=== PATIENT | female | born 2000 | race Caucasian/White ===

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

== ENCOUNTER 2020-01-25 23:57 | Emergency (ER) | payer MEDICAID ==
[~2020-01-25] VITALS: Ht 162.6 cm; Wt 58.5 kg
--- NOTE | 2020-01-26 00:18 | ED GU-Female ---
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 PT REPORTS SHE IS 12 WEEKS . 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 She tried taking some Ibuprofen for the pain at home but it did not help. She states she is about 12 weeks . She denies any vaginal bleeding or discharge. She had an ultrasound with Dr. Em so knows that she has IUP and had FHT found with doppler in last office visit last week on Jan.17. She denies fever or chills. She did not have sex tonight and denies any trauma or injury. She has had recurrent vomiting during the . She denies pain or burning with urination. This is her first . Her next office visit with Dr. Em is not until February 14. Allergies and Home Medications Allergies Coded Allergies: No Known Drug Allergies (Unverified , 12/11/19) Home Medications Cephalexin 500 Mg Tablet, 500 MG PO QID Prescribed by: WILBER LAZO on 01/26/20 0047 Patient Home Medication List Home Medication List Reviewed: Yes Review of Systems Review of Systems Constitutional: No chills, No fever EENTM: no symptoms reported Respiratory: no symptoms reported Cardiovascular: no symptoms reported Gastrointestinal: see HPI Genitourinary: see HPI : Yes Musculoskeletal: no symptoms reported Skin: no symptoms reported Psychiatric/Neurological: No Symptoms Reported Past Apraqyp-Ddwafw-Eiuxko Hx Past Med/Social Hx: Reviewed Nursing Past Med/Soc Hx Patient Social History Alcohol Use: Denies Use Recreational Drug Use: No Smoking Status: Never a Smoker 2nd Hand Smoke Exposure: No Recent Foreign Travel: No Contact w/Someone Who Travel: No Recent Infectious Disease Expo: No Recent Hopitalizations: No Physical Abuse: No Sexual Abuse: No Mistreated: No Fear: No Past Medical History Surgeries: No Respiratory: No Cardiac: No Neurological: No Genitourinary: No Gastrointestinal: No Musculoskeletal: No Endocrine: No HEENT: No Cancer: No Psychosocial: No Integumentary: No Blood Disorders: No Physical Exam Vital Signs Vital Signs - First Documented 01/26/20 00:07 Temp 35.7 Pulse 80 Resp 17 B/P (MAP) 107/70 O2 Delivery Room Air Capillary Refill : Height, Weight, BMI Height: '" Weight: lbs. oz. 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 II-XII nml as tested, no motor/sensory deficits, alert, normal mood/affect, oriented x 3 Skin: normal color, warm/dry Progress/Results/Core Measures Suspected Sepsis SIRS Temperature: Pulse: Respiratory Rate: Blood Pressure / Mean: Results/Orders Lab Results Laboratory Tests Test 01/26/20 00:11 Range/Units Urine Color YELLOW Urine Clarity SL CLOUDY Urine pH 6.0 5-9 Urine Specific [place] >1.030 1.016-1.022 Urine Protein NEGATIVE NEGATIVE Urine Glucose (UA) NEGATIVE NEGATIVE Urine Ketones NEGATIVE NEGATIVE Urine Nitrite NEGATIVE NEGATIVE Urine Bilirubin NEGATIVE NEGATIVE Urine Urobilinogen 0.2 < = 1.0 MG/DL Urine Leukocyte Esterase 1+ H NEGATIVE Urine RBC (Auto) NEGATIVE NEGATIVE Urine RBC NONE /HPF Urine WBC 5-10 H /HPF Urine Squamous Epithelial Cells 5-10 /HPF Urine Crystals NONE /LPF Urine Bacteria MODERATE H /HPF Urine Casts NONE /LPF Urine Mucus MODERATE H /LPF Urine Culture Indicated YES My Orders Orders - WILBER LAZO MD Ua Culture If Indicated (01/26/20 00:04) Urine Culture (01/26/20 00:11) Acetaminophen Tablet (Tylenol Tablet) (01/26/20 00:35) Cephalexin Capsule (Keflex Capsule) (01/26/20 00:35) Vital Signs/I&O 01/26/20 00:07 Temp 35.7 Pulse 80 Resp 17 B/P (MAP) 107/70 O2 Delivery Room Air Capillary Refill : Progress Note #1: Progress Note check urine sample and try listening for FHT. Advised pt against using NSAIDS during and to use Tylenol instead. Progress Note #2: Progress Note FHT found to be 165-170s. UA shows LE, Bacteria and WBC. Will treat with Keflex for UTI, Tylenol for pain. Call Dr. Em in AM for follow up. Departure Impression Primary Impression: UTI (urinary tract infection) in in first trimester Additional Impressions: Dehydration during Pelvic pain affecting in first trimester, antepartum Disposition: HOME, SELF-CARE Condition: Stable Departure-Patient Inst. Decision time for Depature: 00:40 Referrals: THOMAS EM MD (PCP/Family) Primary Care Physician Patient Instructions: Urinary Tract Infections in , Nausea and Vomiting of (DC), Dehydration, Adult (DC) Add. Discharge Instructions: Continue to drink plenty of water and stay well hydrated. Call Dr. Em for follow up about the urine infection and pelvic pain during your All discharge instructions reviewed with patient and/or family. Voiced understanding. Scripts Cephalexin (Cephalexin) 500 Mg Tablet 500 MG PO QID for uti for 7 Days, #28 TAB 0 Refills Prov: WILBER LAZO MD 01/26/20 WILBER LAZO MD Jan 26, 2020 00:18
[2020-01-26 00:26] LABS: BACTERIA,URINE MODERATE /HPF; BILIRUBIN,URINE NEGATIVE (NEGATIVE); CLARITY,URINE SL CLOUDY; COLOR,URINE YELLOW; GLUCOSE, URINE (UA) NEGATIVE (NEGATIVE); KETONES,URINE NEGATIVE (NEGATIVE); LEUKOCYTE ESTERASE ,URINE 1+ (NEGATIVE); NITRITE,URINE NEGATIVE (NEGATIVE); PROTEIN,URINE NEGATIVE (NEGATIVE)
[2020-01-26] MEDS ORDERED: CEPHALEXIN 250 MG (KEFLEX) CAP PO STA (00:35)
[2020-01-26] MEDS ORDERED: ACETAMINOPHEN 500 MG TAB (TYLENOL) PO STA (00:35)
[2020-01-26] MEDS ORDERED: CEPH500T PO (00:47)
== END 2020-01-26 00:50 | disposition home or self-care (01) ==
LOC: EDUNIT# 23:57 → ER FS 01-26 00:01
DX: O23.41 Unspecified infection of urinary tract in pregnancy, first trimester (principal); O99.281 Endocrine, nutritional and metabolic diseases complicating pregnancy, first trimester; E86.0 Dehydration; O26.891 Other specified pregnancy related conditions, first trimester; R10.2 Pelvic and perineal pain; Z3A.12 12 weeks gestation of pregnancy
CPT/HCPCS: 81000; 87088; 99283

== ENCOUNTER 2022-02-12 12:10 | Emergency (ER) | payer MEDICAID ==
[~2022-02-12] VITALS: Ht 162 cm; Wt 58.0 kg
[~2022-02-12 12:10] MED LIST: CEPH500T PO
[2022-02-12 12:13] VITALS: BP 103/60
--- NOTE | 2022-02-12 13:11 | ED GU-Female ---
General Chief Complaint: - Reproductive Stated Complaint: URINARY DISCOMFORT Nursing Triage Note: Pt states that she has had burning with urination for the past week. Source: family Exam Limitations: no limitations History of Present Illness Date Seen by Provider: Feb 12, 2022 Time Seen by Provider: 12:45 Initial Comments Patient is a 21-year-old female who presents with urinary frequency urgency and dysuria for the past several days. She denies fever chills, nausea vomiting or sweats and flank pain. No bladder or pelvic pain. No vaginal bleeding or change in discharge. No medications or therapies prior to ED arrival. Timing/Duration: just prior to arrival, week Severity/Quality: other Location: other Radiation: other Activities at Onset: other Sexual [place] History: other Modifying Factors: Improves With Other Associated Symptoms: other Allergies and Home Medications Allergies Coded Allergies: No Known Drug Allergies (Unverified , 12/11/19) Patient Home Medication List Home Medication List Reviewed: No Cephalexin (Cephalexin) 500 Mg Tablet, 500 MG PO QID Prescribed by: WILBER LAZO on 01/26/20 0047 Review of Systems Review of Systems Constitutional: see HPI Genitourinary: see HPI, dysuria, frequency, pain, urgency Skin: see HPI Past Mrmbekm-Uxycfn-Vhoiys Hx Patient Social History Tobacco Use?: No Use of E-Cig and/or Vaping dev: No Substance use?: No Alcohol Use?: No Pt feels they are or have been: No Past Medical History Surgeries: No Respiratory: No Cardiac: No Neurological: No Last Menstrual Period: Jan 28, 2022 Genitourinary: No Gastrointestinal: No Musculoskeletal: No Endocrine: No HEENT: No Cancer: No Psychosocial: No Integumentary: No Blood Disorders: No Physical Exam Vital Signs Vital Signs - First Documented 02/12/22 12:13 Temp 37.1 Pulse 90 Resp 16 B/P (MAP) 103/60 (74) Pulse Ox 99 O2 Delivery Room Air Capillary Refill : Less Than 3 Seconds Height, Weight, BMI Height: '" Weight: lbs. oz. kg; 22.00 BMI Method: General Appearance: WD/WN, no apparent distress Gastrointestinal: non tender, soft Neurologic/Psychiatric: no motor/sensory deficits, alert, normal mood/affect, oriented x 3 Focused Exam Sepsis Stage: Ruled Out Progress/Results/Core Measures Suspected Sepsis SIRS Temperature: Pulse: 90 Respiratory Rate: 16 Blood Pressure 103 /60 Mean: 74 Results/Orders Lab Results Laboratory Tests Test 02/12/22 12:13 Range/Units Urine Color YELLOW Urine Clarity CLOUDY Urine pH 5.5 5-9 Urine Specific [place] >=1.030 1.016-1.022 Urine Protein NEGATIVE NEGATIVE Urine Glucose (UA) NEGATIVE NEGATIVE Urine Ketones NEGATIVE NEGATIVE Urine Nitrite NEGATIVE NEGATIVE Urine Bilirubin NEGATIVE NEGATIVE Urine Urobilinogen 0.2 < = 1.0 MG/DL Urine Leukocyte Esterase 2+ H NEGATIVE Urine RBC (Auto) NEGATIVE NEGATIVE Urine RBC NONE /HPF Urine WBC 10-25 H /HPF Urine Squamous Epithelial Cells 2-5 /HPF Urine Renal Epithelial Cells RARE /HPF Urine Crystals NONE /LPF Urine Bacteria FEW H /HPF Urine Casts NONE /LPF Urine Mucus SMALL H /LPF Urine Culture Indicated YES My Orders Orders - RAMÓN INGRAM DO Ua Culture If Indicated (02/12/22 12:25) Urine Bedside (02/12/22 12:25) Urine Bedside (02/12/22 12:37) Urine Culture (02/12/22 12:13) Vital Signs/I&O 02/12/22 12:13 Temp 37.1 Pulse 90 Resp 16 B/P (MAP) 103/60 (74) Pulse Ox 99 O2 Delivery Room Air Capillary Refill : Less Than 3 Seconds Blood Pressure Mean: 74 Departure Communication (Admissions) Dysuria with positive UA. Antibiotics prescribed. Recommendations therapeutic care and PCP follow-up. Return precautions reviewed. Patient verbalizes understanding and agreement with discharge instructions prior to discharge Impression Primary Impression: Urinary tract infection Disposition: 01 HOME, SELF-CARE Condition: Stable Departure-Patient Inst. Decision time for Depature: 13:31 Referrals: THOMAS SYED MD (PCP) Primary Care Physician Patient Instructions: Urinary Tract Infection, Adult (DC) Add. Discharge Instructions: You were evaluated in the emergency department for presence of urinary tract infection. A urine sample was performed and is positive. Please fill newly pr escribed antibiotics and take as directed. Increase fluids and follow-up with your PCP in 5 days for reevaluation if symptoms persist. All discharge instructions reviewed with patient and/or family. Voiced understanding. Scripts Sulfamethoxazole/Trimethoprim (Bactrim Ds Tablet) 800 Mg-160 Mg Tablet 1 EACH PO BID, #14 TAB Prov: RAMÓN INGRAM DO 02/12/22 RAMÓN INGRAM DO Feb 12, 2022 13:11
[2022-02-12 13:16] LABS: BILIRUBIN,URINE NEGATIVE (NEGATIVE); CLARITY,URINE CLOUDY; COLOR,URINE YELLOW; GLUCOSE, URINE (UA) NEGATIVE (NEGATIVE); KETONES,URINE NEGATIVE (NEGATIVE); LEUKOCYTE ESTERASE ,URINE 2+ (NEGATIVE); NITRITE,URINE NEGATIVE (NEGATIVE); PH,URINE 5.5 (5-9); PROTEIN,URINE NEGATIVE (NEGATIVE)
[2022-02-12 13:17] LABS: BACTERIA,URINE FEW /HPF; RENAL EPITHELIAL CELLS,URINE RARE /HPF
[2022-02-12] MEDS ORDERED: SULF-221 PO (13:32)
== END 2022-02-12 13:40 | disposition home or self-care (01) ==
LOC: EDUNIT# 12:10 → ER FS 12:11
DX: N39.0 Urinary tract infection, site not specified (principal)
CPT/HCPCS: 81000; 84703; 87088; 99282

== ENCOUNTER 2022-03-26 14:44 | Emergency (ER) | payer MEDICAID ==
[~2022-03-26 14:44] MED LIST changes: +SULF-221 PO
--- NOTE | 2022-03-26 15:12 | ED Cough/URI ---
General Chief Complaint: Cough/Cold/Flu Symptoms Stated Complaint: SOB; COUGH Nursing Triage Note: REPORTS COUGH AND CHEST SORENESS WHEN SHE COUGHS SINCE YESTERDAY. Source: patient Exam Limitations: no limitations History of Present Illness Date Seen by Provider: Mar 26, 2022 Time Seen by Provider: 14:58 Initial Comments 21-year-old female who is 5 to 6 weeks presents for cough, chest pain. She states sharp stabbing pains in her chest when she coughs. No pain outside of this. No abdominal pain or concerns. Symptoms started yesterday. No fevers or chills. Cough is nonproductive to this point. No sick contacts. Allergies and Home Medications Allergies Coded Allergies: No Known Drug Allergies (Unverified , 12/11/19) Patient Home Medication List Home Medication List Reviewed: Yes Cephalexin (Cephalexin) 500 Mg Tablet, 500 MG PO QID Prescribed by: WILBER LAZO on 01/26/20 0047 Sulfamethoxazole/Trimethoprim (Bactrim Ds Tablet) 800 Mg-160 Mg Tablet, 1 EACH PO BID Prescribed by: RAMÓN INGRAM on 02/12/22 1332 Review of Systems Review of Systems Constitutional: no symptoms reported EENTM: no symptoms reported Respiratory: cough Cardiovascular: chest pain Gastrointestinal: no symptoms reported Genitourinary: no symptoms reported Musculoskeletal: no symptoms reported Skin: no symptoms reported Psychiatric/Neurological: No Symptoms Reported Hematologic/Lymphatic: No Symptoms Reported Immunological/Allergic: no symptoms reported Past Uzpahab-Xuuqjw-Dvrjso Hx Patient Social History Tobacco Use?: No Use of E-Cig and/or Vaping dev: No Substance use?: No Alcohol Use?: No Pt feels they are or have been: No Immunizations Up To Date First/Initial COVID19 Vaccinat: DENIES Past Medical History Surgeries: No Respiratory: No Cardiac: No Neurological: No Genitourinary: No Gastrointestinal: No Musculoskeletal: No Endocrine: No HEENT: No Cancer: No Psychosocial: No Integumentary: No Blood Disorders: No Physical Exam Vital Signs - First Documented 03/26/22 03/26/22 14:50 14:53 Temp 36.2 Pulse 103 Resp 18 B/P (MAP) 107/79 (88) Pulse Ox 100 O2 Delivery Room Air Capillary Refill : Less Than 3 Seconds Height: '" Weight: lbs. oz. kg; 22.00 BMI Method: General Appearance: WD/WN, no apparent distress HEENT: normal ENT inspection, pharynx normal Neck: non-tender, supple Respiratory: chest non-tender, lungs clear, normal breath sounds, no respiratory distress, no accessory muscle use Cardiovascular: regular rate, rhythm, no edema, no gallop, no JVD, no murmur Gastrointestinal: normal bowel sounds, non tender, soft, no organomegaly, no pulsatile mass Extremities: normal range of motion, non-tender, normal inspection, no pedal edema, no calf tenderness Neurologic/Psychiatric: alert, normal mood/affect, oriented x 3 Skin: normal color, warm/dry Lymphatic: no adenopathy Progress/Results/Core Measures Suspected Sepsis SIRS Temperature: Pulse: 103 Respiratory Rate: 18 Blood Pressure 107 /79 Mean: 88 Results/Orders Vital Signs/I&O 03/26/22 03/26/22 14:50 14:53 Temp 36.2 Pulse 103 Resp 18 B/P (MAP) 107/79 (88) Pulse Ox 100 O2 Delivery Room Air Room Air Capillary Refill : Less Than 3 Seconds Blood Pressure Mean: 88 Departure Communication (Admissions) Patient is hemodynamically stable. No indication of threat to current . She likely has a viral URI with normal exam normal vital signs. She is discharged home with supportive care. She is comfortable [facility] current plan of care. No evidence for DVT, PE infectious process other than the specified viral infection. No focal bacterial infection. No vaginal bleeding or discharge. No dysuria or hematuria. Impression Primary Impression: Upper respiratory infection Qualified Codes: J06.9 - Acute upper respiratory infection, unspecified Disposition: HOME, SELF-CARE Condition: Stable Departure-Patient Inst. Referrals: THOMAS SYED MD (PCP) Primary Care Physician Patient Instructions: Cough, Adult (DC), Pleuritic Chest Pain Add. Discharge Instructions: You were seen in the emergency department today for chest pain related to your cough. No emergent medical condition is identified this is thought to be ple uritic type pain. Refer to the provided info for further information. Please use Tylenol as needed for these pains. Return to the emergency department for any severe concerns. Follow-up with your primary doctor for any nonemergent needs. There is no indication this is affecting at this time. Follow-up with your OB provider as previously scheduled. All discharge instructions reviewed with patient and/or family. Voiced understanding. APOLINAR SOTO DO Mar 26, 2022 15:12
[2022-03-26 15:14] VITALS: BP 107/79
== END 2022-03-26 15:14 | disposition home or self-care (01) ==
LOC: EDUNIT# 14:44 → ER FS 14:45
DX: O99.511 Diseases of the respiratory system complicating pregnancy, first trimester (principal); J06.9 Acute upper respiratory infection, unspecified; Z28.310 Unvaccinated for COVID-19; Z3A.01 Less than 8 weeks gestation of pregnancy
CPT/HCPCS: 99281

== ENCOUNTER 2022-05-02 11:23 | Emergency (ER) | payer MEDICAID ==
--- NOTE | 2022-05-02 11:45 | ED GU-Female ---
General Chief Complaint: - Reproductive Stated Complaint: SUPRAPUBIC PAIN (12W PREG); N/V History of Present Illness Date Seen by Provider: May 02, 2022 Time Seen by Provider: 11:35 Initial Comments 21-year-old female G2, P1 12 weeks presents with complaints of 1 week of not being able to keep the thing down. She did have some nausea vomiting with the previous . Currently having nausea vomiting with this wound for about a week. Was put on Zofran and then states was switched to something else but she is not sure what it is. No diarrhea no constipation. Today woke up has pain in the back and suprapubic area. Unable to give us urine currently. Allergies and Home Medications Allergies Coded Allergies: No Known Drug Allergies (Unverified , 12/11/19) Patient Home Medication List Home Medication List Reviewed: Yes Cephalexin (Cephalexin) 500 Mg Tablet, 500 MG PO QID Prescribed by: WILBER LAZO on 01/26/20 0047 Sulfamethoxazole/Trimethoprim (Bactrim Ds Tablet) 800 Mg-160 Mg Tablet, 1 EACH PO BID Prescribed by: RAMÓN INGRAM on 02/12/22 1332 Review of Systems Review of Systems Constitutional: see HPI Past Qqupfwh-Eflsgf-Wfqkfl Hx Immunizations Up To Date First/Initial COVID19 Vaccinat: DENIES Past Medical History Surgeries: No Respiratory: No Cardiac: No Neurological: No Genitourinary: No Gastrointestinal: No Musculoskeletal: No Endocrine: No HEENT: No Cancer: No Psychosocial: No Integumentary: No Blood Disorders: No Physical Exam Vital Signs Vital Signs - First Documented 05/02/22 11:41 Temp 36.5 Pulse 91 Resp 16 B/P (MAP) 111/64 (80) Pulse Ox 98 O2 Delivery Room Air Capillary Refill : Height, Weight, BMI Height: '" Weight: lbs. oz. kg; 22.00 BMI Method: General Appearance: WD/WN, no apparent distress HEENT: PERRL/EOMI Neck: normal inspection Cardiovascular: regular rate, rhythm Respiratory: chest non-tender, lungs clear Gastrointestinal: normal bowel sounds, non tender, soft Back: normal inspection Skin: normal color, warm/dry Progress/Results/Core Measures Suspected Sepsis SIRS Temperature: Pulse: Respiratory Rate: Laboratory Tests 05/02/22 11:48: White Blood Count 7.5 Blood Pressure / Mean: Laboratory Tests 05/02/22 11:48: Creatinine 0.55L, Platelet Count 281, Total Bilirubin 0.4 Results/Orders Lab Results Laboratory Tests Test 05/02/22 11:48 05/02/22 12:35 Range/Units White Blood Count 7.5 4.3-11.0 10^3/uL Red Blood Count 4.41 3.80-5.11 10^6/uL Hemoglobin 12.8 11.5-16.0 g/dL Hematocrit 37 35-52 % Mean Corpuscular Volume 83 80-99 fL Mean Corpuscular Hemoglobin 29 25-34 pg Mean Corpuscular Hemoglobin Concent 35 32-36 g/dL Red Cell Distribution Width 14.0 10.0-14.5 % Platelet Count 281 130-400 10^3/uL Mean Platelet Volume 8.9 L 9.0-12.2 fL Immature Granulocyte % (Auto) 0 % Neutrophils (%) (Auto) 58 42-75 % Lymphocytes (%) (Auto) 33 12-44 % Monocytes (%) (Auto) 8 0-12 % Eosinophils (%) (Auto) 1 0-10 % Basophils (%) (Auto) 0 0-10 % Neutrophils # (Auto) 4.3 1.8-7.8 10^3/uL Lymphocytes # (Auto) 2.4 1.0-4.0 10^3/uL Monocytes # (Auto) 0.6 0.0-1.0 10^3/uL Eosinophils # (Auto) 0.1 0.0-0.3 10^3/uL Basophils # (Auto) 0.0 0.0-0.1 10^3/uL Immature Granulocyte # (Auto) 0.0 0.0-0.1 10^3/uL Sodium Level 133 L 135-145 MMOL/L Potassium Level 3.3 L 3.6-5.0 MMOL/L Chloride Level 99 98-107 MMOL/L Carbon Dioxide Level 23 21-32 MMOL/L Anion Gap 11 5-14 MMOL/L Blood Urea Nitrogen 5 L 7-18 MG/DL Creatinine 0.55 L 0.60-1.30 MG/DL Estimat Glomerular Filtration Rate 134 BUN/Creatinine Ratio 9 Glucose Level 81 70-105 MG/DL Calcium Level 9.0 8.5-10.1 MG/DL Corrected Calcium 8.5-10.1 MG/DL Total Bilirubin 0.4 0.1-1.0 MG/DL Aspartate Amino Transf (AST/SGOT) 13 5-34 U/L Alanine Aminotransferase (ALT/SGPT) 7 0-55 U/L Alkaline Phosphatase 78 40-136 U/L Total Protein 7.9 6.4-8.2 GM/DL Albumin 4.6 H 3.2-4.5 GM/DL Urine Color YELLOW Urine Clarity CLEAR Urine pH 6.0 5-9 Urine Specific [place] 1.010 L 1.016-1.022 Urine Protein NEGATIVE NEGATIVE Urine Glucose (UA) NEGATIVE NEGATIVE Urine Ketones 1+ H NEGATIVE Urine Nitrite NEGATIVE NEGATIVE Urine Bilirubin NEGATIVE NEGATIVE Urine Urobilinogen 0.2 < = 1.0 MG/DL Urine Leukocyte Esterase 1+ H NEGATIVE Urine RBC (Auto) NEGATIVE NEGATIVE Urine RBC NONE /HPF Urine WBC 2-5 /HPF Urine Squamous Epithelial Cells 2-5 /HPF Urine Crystals PRESENT H /LPF Urine Calcium Oxalate Crystals RARE H /LPF Urine Bacteria FEW H /HPF Urine Casts NONE /LPF Urine Mucus NEGATIVE /LPF Urine Culture Indicated NO My Orders Orders - LEXI MÁRQUEZ MD Urinalysis (05/02/22 11:30) Ns Iv 1000 Ml (Sodium Chloride 0.9%) (05/02/22 12:00) Cbc With Automated Diff (05/02/22 11:46) Comprehensive Metabolic Panel (05/02/22 11:46) Us Ob Single Fetus<14 [id number] (05/02/22 11:47) Vital Signs/I&O 05/02/22 05/02/22 11:41 12:53 Temp 36.5 36.5 Pulse 91 91 Resp 16 16 B/P (MAP) 111/64 (80) 111/64 Pulse Ox 98 98 O2 Delivery Room Air Room Air Capillary Refill : Progress Note : Time: 13:02 Progress Note Patient feeling better. Labs reviewed. Does look like she has urinary tract infection and some possibly some dehydration due to ketones. Did give a bag of fluid she is feeling better. Will treat with antibiotic and send to primary care OB for follow-up Departure Impression Primary Impression: Urinary tract infection Qualified Codes: N30.00 - Acute cystitis without hematuria Additional Impression: Nausea & vomiting Qualified Codes: R11.2 - Nausea with vomiting, unspecified Disposition: HOME, SELF-CARE Condition: Improved Departure-Patient Inst. Decision time for Depature: 13:04 Referrals: THOMAS SYED MD (PCP) Primary Care Physician Patient Instructions: Urinary Tract Infection, Adult (DC) Add. Discharge Instructions: Take antibiotic. Follow-up with OB. Continue to try and drink fluids. Take nausea medicine All discharge instructions reviewed with patient and/or family. Voiced understan shayla. Scripts Amoxicillin/Potassium Clav (Augmentin 500-125 Tablet) 500 Mg-125 Mg Tablet 1 EACH PO BID for 7 Days, #14 TAB 0 Refills Prov: LEXI MÁRQUEZ MD 05/02/22 LEXI MÁRQUEZ MD May 02, 2022 11:45
[2022-05-02] MEDS ORDERED: NS IV 1000 ML 1,000 ML IV SCH (12:00)
[2022-05-02 12:08] LABS: BASOPHILS % (AUTO) 0 % (0-10); EOSINOPHILS # (AUTO) 0.1 10^3/uL (0.0-0.3); EOSINOPHILS % (AUTO) 1 % (0-10); HEMATOCRIT 37 % (35-52); HEMOGLOBIN 12.8 g/dL (11.5-16.0); LYMPHOCYTES # (AUTO) 2.4 10^3/uL (1.0-4.0); LYMPHOCYTES % (AUTO) 33 % (12-44); MEAN CORPUSCULAR HEMOGLOBIN 29 pg (25-34); MEAN CORPUSCULAR HGB CONC 35 g/dL (32-36); MEAN CORPUSCULAR VOLUME 83 fL (80-99); MEAN PLATELET VOLUME 8.9 fL (9.0-12.2); MONOCYTES # (AUTO) 0.6 10^3/uL (0.0-1.0); MONOCYTES % (AUTO) 8 % (0-12); NEUTROPHILS # (AUTO) 4.3 10^3/uL (1.8-7.8); NEUTROPHILS % (AUTO) 58 % (42-75); PLATELET COUNT 281 10^3/uL (130-400); WHITE BLOOD COUNT 7.5 10^3/uL (4.3-11.0)
--- NOTE | 2022-05-02 12:15 | Diagnostic Imaging Report ---
PROCEDURE: US OB SINGLE FETUS <14 WKS. TECHNIQUE: Multiple real-time grayscale images were obtained over the gravid uterus in various projections. INDICATION: Cramping. There is an intrauterine gestational sac containing a pole consistent with 13 weeks 0 days gestation. heart rate was recorded at 167 bpm. No isabella-gestational sac hemorrhage is identified. Adnexa are unremarkable. IMPRESSION: Single live IUP 13 weeks 0 days gestational age with estimated date of confinement sonographically 11/07/2022. Dictated by: Dictated on workstation # [id number]
[2022-05-02 12:29] LABS: POTASSIUM 3.3 MMOL/L (3.6-5.0); SODIUM 133 MMOL/L (135-145)
[2022-05-02 12:30] LABS: ALANINE AMINOTRANSFERASE 7 U/L (0-55); ALKALINE PHOSPHATASE 78 U/L (40-136); BILIRUBIN,TOTAL 0.4 MG/DL (0.1-1.0); BUN/CREATININE RATIO 9; CARBON DIOXIDE 23 MMOL/L (21-32); CHLORIDE 99 MMOL/L (98-107); CREATININE SERUM 0.55 MG/DL (0.60-1.30); GFR ESTIMATED 134; GLUCOSE 81 MG/DL (70-105); TOTAL PROTEIN 7.9 GM/DL (6.4-8.2)
[2022-05-02 12:31] LABS: ALBUMIN 4.6 GM/DL (3.2-4.5)
[2022-05-02 12:43] LABS: BILIRUBIN,URINE NEGATIVE (NEGATIVE); CLARITY,URINE CLEAR; COLOR,URINE YELLOW; GLUCOSE, URINE (UA) NEGATIVE (NEGATIVE); KETONES,URINE 1+ (NEGATIVE); LEUKOCYTE ESTERASE ,URINE 1+ (NEGATIVE); NITRITE,URINE NEGATIVE (NEGATIVE); PROTEIN,URINE NEGATIVE (NEGATIVE)
[2022-05-02 12:49] LABS: BACTERIA,URINE FEW /HPF; CALCIUM OXALATE CRYSTALS,UR RARE /LPF
[2022-05-02 12:53] VITALS: BP 111/64
[2022-05-02] MEDS ORDERED: AMOX-355 PO (13:08)
== END 2022-05-02 13:14 | disposition home or self-care (01) ==
LOC: EDUNIT# 11:23 → ER FS 11:24
DX: O23.41 Unspecified infection of urinary tract in pregnancy, first trimester (principal); O21.9 Vomiting of pregnancy, unspecified; N39.0 Urinary tract infection, site not specified; Z3A.12 12 weeks gestation of pregnancy
CPT/HCPCS: 36415; 76801; 80053; 81000; 85025

== ENCOUNTER 2022-05-30 16:26 | Emergency (ER) | payer MEDICAID ==
[~2022-05-30 16:26] MED LIST changes: +AMOX-355 PO
--- NOTE | 2022-05-30 16:57 | ED Abdominal Pain ---
General Chief Complaint: OB < 20 WEEKS Stated Complaint: CONTRACTIONS (PREG 16w4d) Source of Information: Patient, Family History of Present Illness Date Seen by Provider: May 30, 2022 Time Seen by Provider: 16:40 Initial Comments Patient is a 21-year-old G2, P1 ultrasound confirmed 16-week gestation female who presents with daily nausea and vomiting for the past 48 hours with dizziness lightheadedness body aches and pelvic cramping for the past 2 hours. Symptoms are consistent with patient's previous morning sickness experiences current . Patient denies urinary frequency urgency dysuria hematuria and flank pain. No vaginal discharge or bleeding. No other symptoms or complaints. No medications or therapies taken prior to ED arrival. Timing/Duration: 1-3 Hours Severity/Quality: Other Location: Unknown Radiation: Other Activities at Onset: Other Modifying Factors: Improves With Other Allergies and Home Medications Allergies Coded Allergies: No Known Drug Allergies (Unverified , 12/11/19) Patient Home Medication List Home Medication List Reviewed: Yes Amoxicillin/Potassium Clav (Augmentin 500-125 Tablet) 500 Mg-125 Mg Tablet, 1 EACH PO BID Prescribed by: Sophie House on 05/02/22 1308 Cephalexin (Cephalexin) 500 Mg Tablet, 500 MG PO QID Prescribed by: WILBER LAZO on 01/26/20 0047 Sulfamethoxazole/Trimethoprim (Bactrim Ds Tablet) 800 Mg-160 Mg Tablet, 1 EACH PO BID Prescribed by: RAMÓN INGRAM on 02/12/22 1332 Review of Systems Review of Systems Constitutional: see HPI EENTM: See HPI Respiratory: See HPI Cardiovascular: See HPI Gastrointestinal: See HPI Genitourinary: See HPI Musculoskeletal: see HPI Skin: see HPI Psychiatric/Neurological: See HPI Endocrine: See HPI Hematologic/Lymphatic: See HPI All Other Systems Reviewed Negative Unless Noted: No Past Snuuzio-Wsvnyz-Wimnfo Hx Patient Social History Tobacco Use?: No Use of E-Cig and/or Vaping dev: No Substance use?: No Alcohol Use?: No Pt feels they are or have been: No Immunizations Up To Date First/Initial COVID19 Vaccinat: DENIES Second COVID19 Vaccination Remington: DENIES Third COVID19 Vaccination Date: DENIES Past Medical History Surgery/Hospitalization HX: Denies Surgeries: No Respiratory: No Cardiac: No Neurological: No Genitourinary: No Gastrointestinal: No Musculoskeletal: No Endocrine: No HEENT: No Cancer: No Psychosocial: No Integumentary: No Blood Disorders: No Physical Exam Vital Signs Vital Signs - First Documented 05/30/22 16:46 Temp 36.2 Pulse 103 Resp 16 B/P (MAP) 110/64 (79) Pulse Ox 99 O2 Delivery Room Air Capillary Refill : Height/Weight/BMI Height: '" Weight: lbs. oz. kg; BMI Method: General Appearance: WD/WN, no apparent distress HEENT: PERRL/EOMI, normal ENT inspection, pharynx normal Neck: non-tender, supple Respiratory: lungs clear, no respiratory distress Cardiovascular: regular rate, rhythm Gastrointestinal: non tender, soft Extremities: normal range of motion, non-tender Back: normal inspection, no CVA tenderness Pelvic: normal adnexa Neurologic/Psychiatric: alert, normal mood/affect, oriented x 3 Skin: normal color Focused Exam Sepsis Stage: Ruled Out Progress/Results/Core Measures Results/Orders Lab Results Laboratory Tests Test 05/30/22 16:59 05/30/22 17:40 Range/Units White Blood Count 11.5 H 4.3-11.0 10^3/uL Red Blood Count 4.59 3.80-5.11 10^6/uL Hemoglobin 13.6 11.5-16.0 g/dL Hematocrit 39 35-52 % Mean Corpuscular Volume 85 80-99 fL Mean Corpuscular Hemoglobin 30 25-34 pg Mean Corpuscular Hemoglobin Concent 35 32-36 g/dL Red Cell Distribution Width 14.0 10.0-14.5 % Platelet Count 272 130-400 10^3/uL Mean Platelet Volume 9.1 9.0-12.2 fL Immature Granulocyte % (Auto) 0 % Neutrophils (%) (Auto) 84 H 42-75 % Lymphocytes (%) (Auto) 10 L 12-44 % Monocytes (%) (Auto) 5 0-12 % Eosinophils (%) (Auto) 0 0-10 % Basophils (%) (Auto) 0 0-10 % Neutrophils # (Auto) 9.7 H 1.8-7.8 10^3/uL Lymphocytes # (Auto) 1.2 1.0-4.0 10^3/uL Monocytes # (Auto) 0.6 0.0-1.0 10^3/uL Eosinophils # (Auto) 0.0 0.0-0.3 10^3/uL Basophils # (Auto) 0.0 0.0-0.1 10^3/uL Immature Granulocyte # (Auto) 0.0 0.0-0.1 10^3/uL Sodium Level 137 135-145 MMOL/L Potassium Level 3.9 3.6-5.0 MMOL/L Chloride Level 102 98-107 MMOL/L Carbon Dioxide Level 20 L 21-32 MMOL/L Anion Gap 15 H 5-14 MMOL/L Blood Urea Nitrogen 6 L 7-18 MG/DL Creatinine 0.56 L 0.60-1.30 MG/DL Estimat Glomerular Filtration Rate 133 BUN/Creatinine Ratio 11 Glucose Level 89 70-105 MG/DL Calcium Level 9.7 8.5-10.1 MG/DL Corrected Calcium 9.3 8.5-10.1 MG/DL Total Bilirubin 0.9 0.1-1.0 MG/DL Aspartate Amino Transf (AST/SGOT) 12 5-34 U/L Alanine Aminotransferase (ALT/SGPT) 8 0-55 U/L Alkaline Phosphatase 78 40-136 U/L Total Protein 7.7 6.4-8.2 GM/DL Albumin 4.5 3.2-4.5 GM/DL Urine Color YELLOW Urine Clarity CLOUDY Urine pH 6.0 5-9 Urine Specific [place] >=1.030 1.016-1.022 Urine Protein NEGATIVE NEGATIVE Urine Glucose (UA) NEGATIVE NEGATIVE Urine Ketones 3+ H NEGATIVE Urine Nitrite NEGATIVE NEGATIVE Urine Bilirubin 1+ H NEGATIVE Urine Urobilinogen 1.0 < = 1.0 MG/DL Urine Leukocyte Esterase 1+ H NEGATIVE Urine RBC (Auto) NEGATIVE NEGATIVE Urine RBC NONE /HPF Urine WBC 50-100 H /HPF Urine Squamous Epithelial Cells >50 H /HPF Urine Crystals NONE /LPF Urine Bacteria LARGE H /HPF Urine Casts NONE /LPF Urine Mucus NEGATIVE /LPF Urine Culture Indicated NO My Orders Orders - RAMÓN INGRAM DO Urinalysis (05/30/22 16:37) Heart Tones (05/30/22 16:37) Cbc With Automated Diff (05/30/22 16:48) Comprehensive Metabolic Panel (05/30/22 16:48) Ns Iv 1000 Ml (Sodium Chloride 0.9%) (05/30/22 17:00) Ondansetron Injection (Zofran Injectio (05/30/22 17:00) Ns Iv 1000 Ml (Sodium Chloride 0.9%) (05/30/22 18:00) Medications Given in ED Current Medications Medications Dose Ordered Sig/Lynette Route Start Time Stop Time Status Last Admin Dose Admin Ondansetron HCl 4 mg ONCE ONCE IVP 05/30/22 17:00 05/30/22 17:01 DC 05/30/22 17:03 4 MG Vital Signs/I&O 05/30/22 16:46 Temp 36.2 Pulse 103 Resp 16 B/P (MAP) 110/64 (79) Pulse Ox 99 O2 Delivery Room Air Departure Communication (Admissions) Family Conversation Patient with nausea, vomiting and UTI. No fever, chills, abdominal pain/cramping, No fever, chills, sweats, and CVA tenderness. Impression Primary Impression: Urinary tract infection Additional Impression: Nausea & vomiting Disposition: HOME, SELF-CARE Condition: Stable Departure-Patient Inst. Decision time for Depature: 18:16 Referrals: THOMAS SYED MD (PCP/Family) Primary Care Physician Patient Instructions: Nausea and Vomiting, Adult ED, Urinary Tract Infection, Child (DC) Add. Discharge Instructions: You were evaluated in the ED for nausea and vomiting and pelvic cramping and labs are diagnostic of urinary tract infection. All discharge instructions reviewed with patient and/or family. Voiced understanding. Scripts Ondansetron (Ondansetron Odt) 4 Mg Tab.rapdis 4 MG SL Q4H PRN for NAUSEA/VOMITING, #10 TAB Prov: RAMÓN INGRAM DO 05/30/22 Cephalexin (Cephalexin) 500 Mg Tablet 500 MG PO TID, #21 TAB Prov: RAMÓN INGRAM DO 05/30/22 RAMÓN INGRAM DO May 30, 2022 16:57
[2022-05-30] MEDS ORDERED: NS IV 1000 ML 1,000 ML IV SCH ×2 (17:00→18:00)
[2022-05-30] MEDS ORDERED: ONDANSETRON 4 MG/2 ML (SDV) Z0FRAN IVP ONE (17:00)
[2022-05-30 17:07] LABS: BASOPHILS % (AUTO) 0 % (0-10); EOSINOPHILS % (AUTO) 0 % (0-10); HEMATOCRIT 39 % (35-52); HEMOGLOBIN 13.6 g/dL (11.5-16.0); LYMPHOCYTES # (AUTO) 1.2 10^3/uL (1.0-4.0); LYMPHOCYTES % (AUTO) 10 % (12-44); MEAN CORPUSCULAR HEMOGLOBIN 30 pg (25-34); MEAN CORPUSCULAR HGB CONC 35 g/dL (32-36); MEAN CORPUSCULAR VOLUME 85 fL (80-99); MEAN PLATELET VOLUME 9.1 fL (9.0-12.2); MONOCYTES # (AUTO) 0.6 10^3/uL (0.0-1.0); MONOCYTES % (AUTO) 5 % (0-12); NEUTROPHILS # (AUTO) 9.7 10^3/uL (1.8-7.8); NEUTROPHILS % (AUTO) 84 % (42-75); PLATELET COUNT 272 10^3/uL (130-400); WHITE BLOOD COUNT 11.5 10^3/uL (4.3-11.0)
[2022-05-30 17:27] LABS: ALBUMIN 4.5 GM/DL (3.2-4.5); BILIRUBIN,TOTAL 0.9 MG/DL (0.1-1.0); CALCIUM 9.7 MG/DL (8.5-10.1); CREATININE SERUM 0.56 MG/DL (0.60-1.30); POTASSIUM 3.9 MMOL/L (3.6-5.0); TOTAL PROTEIN 7.7 GM/DL (6.4-8.2)
[2022-05-30 17:44] LABS: COLOR,URINE YELLOW; GLUCOSE, URINE (UA) NEGATIVE (NEGATIVE); KETONES,URINE 3+ (NEGATIVE); LEUKOCYTE ESTERASE ,URINE 1+ (NEGATIVE); NITRITE,URINE NEGATIVE (NEGATIVE); PROTEIN,URINE NEGATIVE (NEGATIVE)
[2022-05-30 17:49] LABS: CLARITY,URINE CLOUDY
[2022-05-30 17:50] LABS: BACTERIA,URINE LARGE /HPF; BILIRUBIN,URINE 1+ (NEGATIVE); SQUAMOUS EPITHELIAL CELL,UR >50 /HPF; WBC,URINE 50-100 /HPF
[2022-05-30] MEDS ORDERED: cefTRIAXone 1 GM PRE-MIX 50 ML IV ONE (18:15)
[2022-05-30] MEDS ORDERED: CEPH500T PO (18:19)
[2022-05-30] MEDS ORDERED: ONDA4TAB11 SL (18:20)
[2022-05-30 18:33] VITALS: BP 110/64
== END 2022-05-30 18:34 | disposition home or self-care (01) ==
LOC: EDUNIT# 16:26 → ER FS 16:28
DX: O23.42 Unspecified infection of urinary tract in pregnancy, second trimester (principal); N39.0 Urinary tract infection, site not specified; Z28.310 Unvaccinated for COVID-19; Z3A.16 16 weeks gestation of pregnancy
CPT/HCPCS: 36415; 80053; 81000; 85025; 87088

== ENCOUNTER 2022-07-05 13:42 | Emergency (ER) | payer MEDICAID ==
[~2022-07-05] VITALS: Ht 162 cm; Wt 59.0 kg
[~2022-07-05 13:42] MED LIST changes: +ONDA4TAB11 SL
[2022-07-05] MEDS ORDERED: ACETAMINOPHEN 500 MG TAB (TYLENOL) PO ONE (14:15)
[2022-07-05] MEDS ORDERED: LORA10TA72 PO (14:21)
--- NOTE | 2022-07-05 14:21 | ED EENT ---
History of Present Illness General Chief Complaint: Ear Problems Stated Complaint: LEFT EAR PAIN, BLEEDING Nursing Triage Note: LEFT EAR PAIN THAT STARTED 3 DAYS AGO. SHE REPORTS SOME BLEEDING FROM THE EAR. PT IS ALSO 21 WEEKS GESTATION. Source: patient Exam Limitations: no limitations History of Present Illness Date Seen by Provider: Jul 05, 2022 Time Seen by Provider: 14:00 Initial Comments Patient is a 21-year-old female who is 21 weeks who presents with left ear pain for 3 days. Patient is taken Tylenol once daily without relief. She denies headache, nasal congestion, rhinorrhea, sinus pain or tenderness, sore throat hearing loss tinnitus or effusion. No other acute acute symptoms or complaints Timing/Duration: gradual Severity: moderate Location: other Prearrival Treatment: other Modifying Factors: Improves With Other Associated Symptoms: other Allergies and Home Medications Allergies Coded Allergies: No Known Drug Allergies (Unverified , 12/11/19) Patient Home Medication List Home Medication List Reviewed: Yes Amoxicillin/Potassium Clav (Augmentin 500-125 Tablet) 500 Mg-125 Mg Tablet, 1 EACH PO BID Prescribed by: Sophie House on 05/02/22 1308 Cephalexin (Cephalexin) 500 Mg Tablet, 500 MG PO QID Prescribed by: WILBER LAZO on 01/26/20 0047 Cephalexin (Cephalexin) 500 Mg Tablet, 500 MG PO TID Prescribed by: RAMÓN INGRAM on 05/30/22 1819 Ondansetron (Ondansetron Odt) 4 Mg Tab.rapdis, 4 MG SL Q4H PRN for NAUSEA/VOMITING Prescribed by: RAMÓN INGRAM on 05/30/22 182 Sulfamethoxazole/Trimethoprim (Bactrim Ds Tablet) 800 Mg-160 Mg Tablet, 1 EACH PO BID Prescribed by: RAMÓN INGRAM on 02/12/22 1332 Review of Systems Review of Systems Constitutional: see HPI Eyes: See HPI Ears: See HPI Nose: see HPI Mouth: see HPI Past Cfadzdk-Paimpq-Allarg Hx Patient Social History Tobacco Use?: No Use of E-Cig and/or Vaping dev: No Substance use?: No Alcohol Use?: No Pt feels they are or have been: No Immunizations Up To Date First/Initial COVID19 Vaccinat: DENIES Second COVID19 Vaccination Remington: DENIES Third COVID19 Vaccination Date: DENIES Past Medical History Surgery/Hospitalization HX: Denies Surgeries: No Respiratory: No Cardiac: No Neurological: No Last Menstrual Period: Jan 28, 2022 Genitourinary: No Gastrointestinal: No Musculoskeletal: No Endocrine: No HEENT: No Cancer: No Psychosocial: No Integumentary: No Blood Disorders: No Physical Exam Vital Signs Vital Signs - First Documented 07/05/22 13:45 Temp 35.7 Pulse 84 Resp 16 B/P (MAP) 107/59 (75) Pulse Ox 100 O2 Delivery Room Air Height, Weight, BMI Height: '" Weight: lbs. oz. kg; 22.00 BMI Method: General Appearance: no apparent distress Eyes: bilateral eye normal inspection, bilateral eye PERRL, bilateral eye EOMI Ears: left ear TM bulging Nose: normal inspection, active bleeding Progress/Results/Core Measures Results/Orders My Orders Orders - RAMÓN INGRAM DO Acetaminophen Tablet (Tylenol Tablet) (07/05/22 14:15) Vital Signs/I&O 07/05/22 13:45 Temp 35.7 Pulse 84 Resp 16 B/P (MAP) 107/59 (75) Pulse Ox 100 O2 Delivery Room Air Blood Pressure Mean: 75 Departure Communication (Admissions) Left ear pain secondary to serous effusion. Recommendations are Tylenol and Claritin with PCP follow-up as needed Impression Primary Impression: Left acute serous otitis media Disposition: 01 HOME, SELF-CARE Condition: Stable Departure-Patient Inst. Decision time for Depature: 14:19 Referrals: NO,LOCAL PHYSICIAN (PCP/Family) Primary Care Physician Patient Instructions: Fluid in the Ear ED Add. Discharge Instructions: You were evaluated in the emergency department for left ear pain. Your symptoms are consistent with pressure from a bulging tympanic membrane (eardrum.) You may take 1000 mg of Tylenol 4 times daily and Claritin twice daily. Follow-up with your PCP and/or OB in 1 week if no improvement. All discharge instructions reviewed with patient and/or family. Voiced understanding. Scripts Loratadine (Claritin) 10 Mg Tab.rapdis 10 MG PO BID, #30 TAB Prov: RAMÓN INGRAM DO 07/05/22 RAMÓN INGRAM DO Jul 05, 2022 14:21
[2022-07-05 14:22] VITALS: BP 107/59
== END 2022-07-05 14:22 | disposition home or self-care (01) ==
LOC: EDUNIT# 13:42 → ER FS 13:44
DX: O99.891 Other specified diseases and conditions complicating pregnancy (principal); H65.02 Acute serous otitis media, left ear; Z3A.21 21 weeks gestation of pregnancy; Z28.310 Unvaccinated for COVID-19
CPT/HCPCS: 99283

== ENCOUNTER 2022-07-24 13:44 | Emergency (ER) | payer MEDICAID ==
[~2022-07-24] VITALS: Ht 162.5 cm; Wt 62.5 kg
[~2022-07-24 13:44] MED LIST changes: +LORA10TA72 PO
[2022-07-24 14:00] VITALS: BP 102/70
[2022-07-24] MEDS ORDERED: OFLO5DRO33 OT (14:26)
[2022-07-24] MEDS ORDERED: AMOX1TAB12 PO (14:26)
--- NOTE | 2022-07-24 14:28 | ED General ---
General Chief Complaint: General Problems/Pain Stated Complaint: FACIAL SWELLING; LT EAR BLEEDING Nursing Triage Note: Patient c/o Lt. ear pain that started a few days ago and Rt. lower jaw swelling that started today. Pt. states her Lt. ear was draining this am when she woke up. No active draining from Lt. ear at this time. Pt. states she does have broken teeth to bottom Rt. side. Pt. denies any fevers. Pt. rates her pain 7/10 and denies taking anything at home for her pain. Source of Information: Patient History of Present Illness Date Seen by Provider: Jul 24, 2022 Time Seen by Provider: 13:50 Initial Comments 21-year-old female that is approximately 24 weeks presenting with complaints of right lower jaw swelling for 2 days and recurrent left ear pain with drainage. She had not followed up with Dr. Syed or seeing her dentist. She has an appointment with Dr. Syed for her at the end of this month. She was seen at the end of June for ear pain and drainage at that time. She has been doing symptomatic care since she was seen in June. She denies having fever, chills, nausea, vomiting. She does have several teeth that are bad and that could be contributing to her facial swelling and pain. She has not seen the dentist recently with her . She has been using Tylenol to help with dental pain and ear pain. Timing/Duration: Getting Worse Severity: Moderate Modifying Factors: worse with Movement Associated Systoms: No Chest Pain, No Cough, No Diaphoresis, No Fever/Chills, No Headaches, No Loss of Appetite, No Malaise, No Nausea/Vomiting, No Rash, No Seizure, No Shortness of Air, No Syncope, No Weakness Allergies and Home Medications Allergies Coded Allergies: No Known Drug Allergies (Unverified , 12/11/19) Patient Home Medication List Home Medication List Reviewed: Yes Amoxicillin/Potassium Clav (Augmentin 500-125 Tablet) 500 Mg-125 Mg Tablet, 1 EACH PO BID Prescribed by: Sophie House on 05/02/22 1308 Amoxicillin/Potassium Clav (Amox Tr-K Clv 875-125 mg Tab) 875 Mg-125 Mg Tablet, 1 EACH PO BID Prescribed by: WILBER LAZO on 07/24/22 1426 Cephalexin (Cephalexin) 500 Mg Tablet, 500 MG PO QID Prescribed by: WILBER LAZO on 01/26/20 0047 Cephalexin (Cephalexin) 500 Mg Tablet, 500 MG PO TID Prescribed by: RAMÓN INGRAM on 05/30/22 1819 Loratadine (Claritin) 10 Mg Tab.rapdis, 10 MG PO BID Prescribed by: RAMÓN INGRAM on 07/05/22 1421 Ofloxacin (Ofloxacin) 0.3 % Drops, 10 DROPS OT DAILY Prescribed by: WILBER LAZO on 07/24/22 1426 Ondansetron (Ondansetron Odt) 4 Mg Tab.rapdis, 4 MG SL Q4H PRN for NAUSEA/VOMITING Prescribed by: RAMÓN INGRAM on 05/30/22 182 Sulfamethoxazole/Trimethoprim (Bactrim Ds Tablet) 800 Mg-160 Mg Tablet, 1 EACH PO BID Prescribed by: RAMÓN INGRAM on 02/12/22 1332 Review of Systems Review of Systems Constitutional: No chills, No fever EENTM: ear discharge (Drainage of blood from the left ear times), ear pain, dental problems (Dental caries and swelling to the right jaw.) Respiratory: no symptoms reported Cardiovascular: no symptoms reported Gastrointestinal: no symptoms reported Genitourinary: no symptoms reported : Yes Musculoskeletal: no symptoms reported Skin: no symptoms reported Psychiatric/Neurological: No Symptoms Reported Past Wrdpqow-Xdonqe-Apinix Hx Patient Social History Tobacco Use?: No Use of E-Cig and/or Vaping dev: No Substance use?: No Alcohol Use?: No Pt feels they are or have been: No Immunizations Up To Date Influenza Vaccine Up-to-Date: No; Not Current First/Initial COVID19 Vaccinat: DENIES Second COVID19 Vaccination Remington: DENIES Third COVID19 Vaccination Date: DENIES Past Medical History Surgery/Hospitalization HX: Denies Surgeries: No Respiratory: No Cardiac: No Neurological: No Last Menstrual Period: Jan 28, 2022 Genitourinary: No Gastrointestinal: No Musculoskeletal: No Endocrine: No HEENT: No Cancer: No Psychosocial: No Integumentary: No Blood Disorders: No Physical Exam Vital Signs Vital Signs - First Documented 07/24/22 14:00 Temp 36.7 Pulse 79 Resp 12 B/P (MAP) 102/70 (81) Pulse Ox 100 O2 Delivery Room Air Capillary Refill : Height, Weight, BMI Height: '" Weight: lbs. oz. kg; 23.00 BMI Method: General Appearance: No Apparent Distress, WD/WN HEENT: PERRL/EOMI, Pharynx Normal, Moist Mucous Membranes, TM Abnormal (L) (Dullness with serous effusion behind the TM. No active bleeding seen on direct visual exam.), Other (Widespread dental decay with gum swelling on the right jaw where she has pain.) Neck: Full Range of Motion, Normal Inspection, Supple, Lymphadenopathy (L), Lymphadenopathy (R) Respiratory: Chest Non Tender, Lungs Clear, Normal Breath Sounds, No Accessory Muscle Use, No Respiratory Distress Cardiovascular: Regular Rate, Rhythm, Normal Peripheral Pulses Neurologic/Psychiatric: Alert, Oriented x3 Skin: Normal Color, Warm/Dry Progress/Results/Core Measures Suspected Sepsis SIRS Temperature: Pulse: 79 Respiratory Rate: 12 Blood Pressure 102 /70 Mean: 81 Results/Orders Vital Signs/I&O 07/24/22 14:00 Temp 36.7 Pulse 79 Resp 12 B/P (MAP) 102/70 (81) Pulse Ox 100 O2 Delivery Room Air Capillary Refill : 2 Blood Pressure Mean: 81 Progress Note : Progress Note With her having recurrent serous fluid and drainage from the left ear will treat with an antibiotic since she had similar symptoms approximately 3 weeks ago. The antibiotics will also help with her dental pain and infection on the right jaw. Encouraged to check back with the dentist as well as her OB/tire specialist. May continue to take acetaminophen and Benadryl [id number] to help with pain and congestion. Prescribe Augmentin 875 1 p.o. twice daily x7 days for her dental infection and ear infection. Also prescribed ofloxacin otic drops 10 drops to the left ear daily for 10 days to help with the serous fluid and infection. Departure Impression Primary Impression: Left acute serous otitis media Qualified Codes: H65.05 - Acute serous otitis media, recurrent, left ear Additional Impressions: Pain due to dental caries Dental abscess Incidental Disposition: 01 HOME, SELF-CARE Condition: Stable Departure-Patient Inst. Decision time for Depature: 14:23 Referrals: THOMAS SYED MD NO,LOCAL PHYSICIAN (PCP) Primary Care Physician [facility] Patient Instructions: Ear Infections (Otitis Media) in Adults (DC), Tooth Decay ED, Tooth Abscess ED Add. Discharge Instructions: Take the antibiotics to treat for dental abscess/infection. This will also help the ear infection and fluid in your ear. Use the antibiotic ear drops to left ear to help treat for the infection and fluid build up. May continue to take Acetaminophen for pain and Diphenhydramine if needed for antihistamine. Check back with Dentist about your teeth and facial swelling and Dr. Syed when you see her for your OB follow up you could ask her to check on your ear as well. All discharge instructions reviewed with patient and/or family. Voiced understanding. Scripts Ofloxacin (Ofloxacin) 0.3 % Drops 10 DROPS OT DAILY for Otitis Media for 10 Days, #5 ML 0 Refills Prov: WILBER LAZO MD 07/24/22 Amoxicillin/Potassium Clav (Amox Tr-K Clv 875-125 mg Tab) 875 Mg-125 Mg Tablet 1 EACH PO BID for dental abscess for 7 Days, #14 TAB 0 Refills Prov: WILBER LAZO MD 07/24/22 WILBER LAZO MD Jul 24, 2022 14:28
== END 2022-07-24 14:29 | disposition home or self-care (01) ==
LOC: EDUNIT# 13:44 → ER FS 13:45
DX: O99.891 Other specified diseases and conditions complicating pregnancy (principal); O99.612 Diseases of the digestive system complicating pregnancy, second trimester; H65.02 Acute serous otitis media, left ear; K02.9 Dental caries, unspecified; K04.7 Periapical abscess without sinus; Z28.310 Unvaccinated for COVID-19; Z3A.24 24 weeks gestation of pregnancy
CPT/HCPCS: 99282

== ENCOUNTER 2022-08-12 12:18 | Emergency (ER) | payer MEDICAID ==
[~2022-08-12 12:18] MED LIST changes: +AMOX1TAB12 PO; +OFLO5DRO33 OT
--- NOTE | 2022-08-12 12:42 | ED General ---
General Chief Complaint: Lower Extremity Stated Complaint: SWOLL LGS & TINGLING,PN W STAND AND WALK, 27WKS [place] Source of Information: Patient History of Present Illness Date Seen by Provider: Aug 12, 2022 Time Seen by Provider: 12:25 Initial Comments 21-year-old female presenting with complaints of bilateral leg swelling since last night. Today she felt like she was having contractions in her pelvis and into her back. She states that this feels similar to when she had contractions with her first . She is G2, P1 and approximately 27 weeks and 2 days estimated gestational age with estimated delivery date of November 10. She states she has pain to both legs from the swelling. She has not taken any acetaminophen for pain. She denies vaginal bleeding or gush of fluid. Timing/Duration: 12-24 Hours Severity: Moderate Modifying Factors: worse with Movement Associated Systoms: No Chest Pain, No Cough, No Diaphoresis, No Fever/Chills, No Headaches; Loss of Appetite; No Rash, No Seizure, No Shortness of Air, No Syncope, No Weakness Allergies and Home Medications Allergies Coded Allergies: No Known Drug Allergies (Unverified , 12/11/19) Patient Home Medication List Home Medication List Reviewed: Yes Amoxicillin/Potassium Clav (Augmentin 500-125 Tablet) 500 Mg-125 Mg Tablet, 1 EACH PO BID Prescribed by: Sophie House on 05/02/22 1308 Amoxicillin/Potassium Clav (Amox Tr-K Clv 875-125 mg Tab) 875 Mg-125 Mg Tablet, 1 EACH PO BID Prescribed by: WILBER LAZO on 07/24/22 1426 Cephalexin (Cephalexin) 500 Mg Tablet, 500 MG PO QID Prescribed by: WILBER LAZO on 01/26/20 0047 Cephalexin (Cephalexin) 500 Mg Tablet, 500 MG PO TID Prescribed by: RAMÓN INGRAM on 05/30/22 1819 Loratadine (Claritin) 10 Mg Tab.rapdis, 10 MG PO BID Prescribed by: RAMÓN INGRAM on 07/05/22 1421 Nitrofurantoin Monohyd/M-Cryst (Macrobid 100 mg Capsule) 100 Mg Capsule, 1 TAB PO BID Prescribed by: WILBER LAZO on 08/12/22 1419 Ofloxacin (Ofloxacin) 0.3 % Drops, 10 DROPS OT DAILY Prescribed by: WILBER LAZO on 07/24/22 1426 Ondansetron (Ondansetron Odt) 4 Mg Tab.rapdis, 4 MG SL Q4H PRN for NAUSEA/VOMITING Prescribed by: RAMÓN INGRAM on 05/30/22 1820 Sulfamethoxazole/Trimethoprim (Bactrim Ds Tablet) 800 Mg-160 Mg Tablet, 1 EACH PO BID Prescribed by: RAMÓN INGRAM on 02/12/22 1332 Review of Systems Review of Systems Constitutional: No chills, No fever EENTM: no symptoms reported Respiratory: no symptoms reported Cardiovascular: no symptoms reported Gastrointestinal: see HPI Genitourinary: see HPI : Yes Expected Date of Delivery: Nov 10, 2022 Musculoskeletal: see HPI, muscle cramps (pain in lower extremities bilaterally) Skin: No change in color Psychiatric/Neurological: Denies Paresthesia Past Ttkmnyi-Scviom-Taipjz Hx Patient Social History Tobacco Use?: No Use of E-Cig and/or Vaping dev: No Substance use?: No Alcohol Use?: No Immunizations Up To Date First/Initial COVID19 Vaccinat: DENIES Second COVID19 Vaccination Remington: DENIES Third COVID19 Vaccination Date: DENIES Past Medical History Surgery/Hospitalization HX: Denies Surgeries: No Respiratory: No Cardiac: No Neurological: No Genitourinary: No Gastrointestinal: No Musculoskeletal: No Endocrine: No HEENT: No Cancer: No Psychosocial: No Integumentary: No Blood Disorders: No Physical Exam Vital Signs Vital Signs - First Documented 08/12/22 12:30 Temp 36.6 Pulse 103 Resp 16 B/P (MAP) 120/79 (93) Pulse Ox 96 O2 Delivery Room Air Capillary Refill : Height, Weight, BMI Height: '" Weight: lbs. oz. kg; 23.00 BMI Method: General Appearance: No Apparent Distress, WD/WN Respiratory: Chest Non Tender, Lungs Clear, Normal Breath Sounds, No Accessory Muscle Use, No Respiratory Distress Cardiovascular: Regular Rate, Rhythm, Normal Peripheral Pulses Gastrointestinal: Normal Bowel Sounds, No Pulsatile Mass, Non Tender, Soft Extremity: Normal Capillary Refill, Calf Tenderness, Pedal Edema (1+ nonpitting edema BLE) Neurologic/Psychiatric: Alert, Oriented x3, milk of lime slaker II-XII Norm as Tested Skin: Normal Color, Warm/Dry Progress/Results/Core Measures Suspected Sepsis SIRS Temperature: Pulse: Respiratory Rate: Blood Pressure / Mean: Results/Orders Lab Results Laboratory Tests Test 08/12/22 12:30 Range/Units Urine Color YELLOW Urine Clarity SL CLOUDY Urine pH 6.5 5-9 Urine Specific [place] 1.020 1.016-1.022 Urine Protein NEGATIVE NEGATIVE Urine Glucose (UA) NEGATIVE NEGATIVE Urine Ketones 1+ H NEGATIVE Urine Nitrite NEGATIVE NEGATIVE Urine Bilirubin NEGATIVE NEGATIVE Urine Urobilinogen 0.2 < = 1.0 MG/DL Urine Leukocyte Esterase 3+ H NEGATIVE Urine RBC (Auto) NEGATIVE NEGATIVE Urine RBC NONE /HPF Urine WBC 5-10 H /HPF Urine Squamous Epithelial Cells 10-25 H /HPF Urine Crystals NONE /LPF Urine Bacteria MODERATE H /HPF Urine Casts NONE /LPF Urine Mucus NEGATIVE /LPF Urine Culture Indicated YES My Orders Orders - WILBER LAZO MD Ua Culture If Indicated (08/12/22 12:30) Urine Culture (08/12/22 12:30) Vital Signs/I&O 08/12/22 08/12/22 12:30 14:23 Temp 36.6 36.6 Pulse 103 103 Resp 16 16 B/P (MAP) 120/79 (93) 120/79 Pulse Ox 96 96 O2 Delivery Room Air Room Air Capillary Refill : Progress Note #1: Progress Note Try to obtain urinalysis to check for signs of proteinuria or infection. Call placed to nurse practitioner Myra Mayen that works with Dr. Syed in [facility] for php architect care. She states she will bring equipment to the ED from [facility] clinic to perform NST and look for signs of contractions or distress. heart tones were normal in 140s to 150s with doppler here in ED. Progress Note #2: Progress Note She was finally able to provide a urine specimen after drinking some fluids here. She had a negative NST per nurse practitioner Tiarra. Patient was advised to elevate her legs to help with the swelling and use acetaminophen 650 mg up to every 4-6 hours as needed for pain. Stay well-hydrated. On her urine it did show signs of UTI with leukocyte esterase, white blood cells, bacteria. Will place patient on Macrobid 100 mg p.o. twice daily for 5 days. If the culture and sensitivity shows that she needs a different medication she will get a call. Check back with Dr. Syed through the [facility] clinic if having continued concerns or more issues. Departure Impression Primary Impression: Acute cystitis without hematuria Additional Impressions: Incidental Localized swelling of both lower legs Disposition: 01 HOME, SELF-CARE Condition: Stable Departure-Patient Inst. Decision time for Depature: 14:17 Referrals: THOMAS SYED MD NO,LOCAL PHYSICIAN (PCP) Primary Care Physician Patient Instructions: Swelling, Urinary Tract Infection, Adult ED, Urinary Tract Infections in Add. Discharge Instructions: Take acetaminophen 650 mg every 4-6 hours as needed for leg pain. Try and increase your fluids and hydration. Try to keep your legs elevated to help with swelling and pain. Follow-up with Dr. Syed tomorrow if having worsening symptoms or more concerns All discharge instructions reviewed with patient and/or family. Voiced understanding. Scripts Nitrofurantoin Monohyd/M-Cryst (Macrobid 100 mg Capsule) 100 Mg Capsule 1 TAB PO BID for UTI for 5 Days, #10 CAP 0 Refills Prov: WILBER LAZO MD 08/12/22 WILBER LAZO MD Aug 12, 2022 12:42
[2022-08-12 13:45] LABS: BILIRUBIN,URINE NEGATIVE (NEGATIVE); CLARITY,URINE SL CLOUDY; COLOR,URINE YELLOW; GLUCOSE, URINE (UA) NEGATIVE (NEGATIVE); KETONES,URINE 1+ (NEGATIVE); LEUKOCYTE ESTERASE ,URINE 3+ (NEGATIVE); NITRITE,URINE NEGATIVE (NEGATIVE); PH,URINE 6.5 (5-9); PROTEIN,URINE NEGATIVE (NEGATIVE)
[2022-08-12 14:00] LABS: BACTERIA,URINE MODERATE /HPF
[2022-08-12] MEDS ORDERED: NITR-65 PO (14:19)
[2022-08-12 14:23] VITALS: BP 120/79
== END 2022-08-12 14:24 | disposition home or self-care (01) ==
LOC: EDUNIT# 12:18 → ER FS 12:22
DX: O23.12 Infections of bladder in pregnancy, second trimester (principal); N30.00 Acute cystitis without hematuria; R22.43 Localized swelling, mass and lump, lower limb, bilateral; Z28.310 Unvaccinated for COVID-19; Z3A.27 27 weeks gestation of pregnancy
CPT/HCPCS: 81000; 87088

== ENCOUNTER 2022-08-24 10:27 | Emergency (ER) | payer MEDICAID ==
[~2022-08-24] VITALS: Ht 162.6 cm; Wt 67.4 kg
[~2022-08-24 10:27] MED LIST changes: +NITR-65 PO
[2022-08-24 10:44] LABS: BILIRUBIN,URINE NEGATIVE (NEGATIVE); CLARITY,URINE CLEAR; COLOR,URINE YELLOW; GLUCOSE, URINE (UA) NEGATIVE (NEGATIVE); KETONES,URINE 3+ (NEGATIVE); LEUKOCYTE ESTERASE ,URINE NEGATIVE (NEGATIVE); NITRITE,URINE NEGATIVE (NEGATIVE); PH,URINE 5.5 (5-9); PROTEIN,URINE TRACE (NEGATIVE)
--- NOTE | 2022-08-24 10:44 | ED General ---
General Chief Complaint: OB > 20 WEEKS Stated Complaint: 29 WKS , BLURRED VISION, AUGUSTIN Source of Information: Patient Exam Limitations: No Limitations History of Present Illness Date Seen by Provider: Aug 24, 2022 Time Seen by Provider: 10:34 Initial Comments 21-year-old female presents to the emergency department today for headache, blurred vision. She is 29 weeks , . She states the headache and blurred vision started this morning. She had noticed some left-sided facial swelling yesterday. She does have issues with condition in the past but states she does not have any current pain. No fevers or chills. She denies any high blood pressures during and she is not on any medications other than vitamins. She denies any focal weakness numbness or tingling. No dysarthria. No abdominal pain. No vaginal discharge or bleeding. All other systems reviewed and negative except documented per HPI. Voice recognition software was used to help create this chart Allergies and Home Medications Allergies Coded Allergies: No Known Drug Allergies (Unverified , 12/11/19) Patient Home Medication List Home Medication List Reviewed: Yes Amoxicillin (Amoxicillin) 500 Mg Capsule, 500 MG PO TID Prescribed by: APOLINAR SOTO MD on 08/24/22 1140 Amoxicillin/Potassium Clav (Augmentin 500-125 Tablet) 500 Mg-125 Mg Tablet, 1 EACH PO BID Prescribed by: Sophie House on 05/02/22 1308 Amoxicillin/Potassium Clav (Amox Tr-K Clv 875-125 mg Tab) 875 Mg-125 Mg Tablet, 1 EACH PO BID Prescribed by: WILBER LAZO on 07/24/22 1426 Cephalexin (Cephalexin) 500 Mg Tablet, 500 MG PO QID Prescribed by: WILBER LAZO on 01/26/20 0047 Cephalexin (Cephalexin) 500 Mg Tablet, 500 MG PO TID Prescribed by: RAMÓN INGRAM on 05/30/22 1819 Doxylamine/Pyridoxine HCl (Diclegis Dr 10-10 mg Tablet) 10 Mg-10 Mg Tablet.dr, 1 EACH PO HS Prescribed by: APOLINAR SOTO MD on 08/24/22 1139 Loratadine (Claritin) 10 Mg Tab.rapdis, 10 MG PO BID Prescribed by: RAMÓN INGRAM on 07/05/22 1421 Nitrofurantoin Monohyd/M-Cryst (Macrobid 100 mg Capsule) 100 Mg Capsule, 1 TAB PO BID Prescribed by: WILBER LAZO on 08/12/22 1419 Ofloxacin (Ofloxacin) 0.3 % Drops, 10 DROPS OT DAILY Prescribed by: WILBER LAZO on 07/24/22 1426 Ondansetron (Ondansetron Odt) 4 Mg Tab.rapdis, 4 MG SL Q4H PRN for NAUSEA/VOMITING Prescribed by: RAMÓN INGRAM on 05/30/22 1820 Potassium Chloride (K-Tab ER) 20 Meq Tablet.er, 40 MEQ PO DAILY Prescribed by: APOLINAR SOTO MD on 08/24/22 1142 Promethazine HCl (Promethazine Suppository) 12.5 Mg Supp.rect, 12.5 MG RC TID Prescribed by: APOLINAR SOTO MD on 08/24/22 1139 Sulfamethoxazole/Trimethoprim (Bactrim Ds Tablet) 800 Mg-160 Mg Tablet, 1 EACH PO BID Prescribed by: RAMÓN INGRAM on 02/12/22 1332 Review of Systems Review of Systems Constitutional: see HPI Past Jjwijep-Nlxkvn-Gepnay Hx Patient Social History Tobacco Use?: No Use of E-Cig and/or Vaping dev: No Alcohol Use?: No Immunizations Up To Date First/Initial COVID19 Vaccinat: DENIES Second COVID19 Vaccination Remington: DENIES Third COVID19 Vaccination Date: DENIES Past Medical History Surgeries: No Respiratory: No Cardiac: No Neurological: No Genitourinary: No Gastrointestinal: No Musculoskeletal: No Endocrine: No HEENT: No Cancer: No Psychosocial: No Integumentary: No Blood Disorders: No Physical Exam Vital Signs Vital Signs - First Documented 08/24/22 10:49 Temp 35.8 Pulse 80 Resp 18 B/P (MAP) 118/75 (89) Pulse Ox 98 O2 Delivery Room Air Capillary Refill : Height, Weight, BMI Height: '" Weight: lbs. oz. kg; 23.00 BMI Method: General Appearance: No Apparent Distress, WD/WN HEENT: PERRL/EOMI, TMs Normal, Normal ENT Inspection, Pharynx Normal, Other (Very slight left-sided facial swelling in the malar region.) Neck: Normal Inspection, Non Tender, Supple Respiratory: Chest Non Tender, Lungs Clear, Normal Breath Sounds, No Accessory Muscle Use, No Respiratory Distress Cardiovascular: Regular Rate, Rhythm, No Murmur, Normal Peripheral Pulses Gastrointestinal: Normal Bowel Sounds, No Organomegaly, Non Tender, Soft Back: Normal Inspection, No Vertebral Tenderness Extremity: Normal Capillary Refill, Normal Inspection, Non Tender, No Calf Tenderness Neurologic/Psychiatric: Alert, Oriented x3, No Motor/Sensory Deficits, Normal 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, 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 Norm as Tested Skin: Normal Color, Warm/Dry Progress/Results/Core Measures Suspected Sepsis SIRS Temperature: Pulse: Respiratory Rate: Laboratory Tests 08/24/22 10:45: White Blood Count 12.9H Blood Pressure / Mean: Laboratory Tests 08/24/22 10:45: Creatinine 0.40L, Platelet Count 398, Total Bilirubin 0.7 Results/Orders Lab Results Laboratory Tests Test 08/24/22 10:35 08/24/22 10:45 Range/Units Urine Color YELLOW Urine Clarity CLEAR Urine pH 5.5 5-9 Urine Specific [place] >=1.030 1.016-1.022 Urine Protein TRACE H NEGATIVE Urine Glucose (UA) NEGATIVE NEGATIVE Urine Ketones 3+ H NEGATIVE Urine Nitrite NEGATIVE NEGATIVE Urine Bilirubin NEGATIVE NEGATIVE Urine Urobilinogen 0.2 < = 1.0 MG/DL Urine Leukocyte Esterase NEGATIVE NEGATIVE Urine RBC (Auto) 2+ H NEGATIVE Urine RBC 50-100 H /HPF Urine WBC 0-2 /HPF Urine Squamous Epithelial Cells 10-25 H /HPF Urine Crystals NONE /LPF Urine Bacteria FEW H /HPF Urine Casts NONE /LPF Urine Mucus NEGATIVE /LPF Urine Culture Indicated YES White Blood Count 12.9 H 4.3-11.0 10^3/uL Red Blood Count 3.72 L 3.80-5.11 10^6/uL Hemoglobin 10.6 L 11.5-16.0 g/dL Hematocrit 33 L 35-52 % Mean Corpuscular Volume 88 80-99 fL Mean Corpuscular Hemoglobin 29 25-34 pg Mean Corpuscular Hemoglobin Concent 32 32-36 g/dL Red Cell Distribution Width 14.6 H 10.0-14.5 % Platelet Count 398 130-400 10^3/uL Mean Platelet Volume 8.3 L 9.0-12.2 fL Immature Granulocyte % (Auto) 1 % Neutrophils (%) (Auto) 80 H 42-75 % Lymphocytes (%) (Auto) 15 12-44 % Monocytes (%) (Auto) 4 0-12 % Eosinophils (%) (Auto) 0 0-10 % Basophils (%) (Auto) 0 0-10 % Neutrophils # (Auto) 10.3 H 1.8-7.8 10^3/uL Lymphocytes # (Auto) 1.9 1.0-4.0 10^3/uL Monocytes # (Auto) 0.5 0.0-1.0 10^3/uL Eosinophils # (Auto) 0.0 0.0-0.3 10^3/uL Basophils # (Auto) 0.1 0.0-0.1 10^3/uL Immature Granulocyte # (Auto) 0.1 0.0-0.1 10^3/uL Sodium Level 138 135-145 MMOL/L Potassium Level 2.9 L 3.6-5.0 MMOL/L Chloride Level 105 98-107 MMOL/L Carbon Dioxide Level 18 L 21-32 MMOL/L Anion Gap 15 H 5-14 MMOL/L Blood Urea Nitrogen 7 7-18 MG/DL Creatinine 0.40 L 0.60-1.30 MG/DL Estimat Glomerular Filtration Rate 144 BUN/Creatinine Ratio 18 Glucose Level 99 70-105 MG/DL Calcium Level 8.6 8.5-10.1 MG/DL Corrected Calcium 9.1 8.5-10.1 MG/DL Total Bilirubin 0.7 0.1-1.0 MG/DL Aspartate Amino Transf (AST/SGOT) 139 H 5-34 U/L Alanine Aminotransferase (ALT/SGPT) 54 0-55 U/L Alkaline Phosphatase 129 40-136 U/L Total Protein 6.4 6.4-8.2 GM/DL Albumin 3.4 3.2-4.5 GM/DL My Orders Orders - APOLINAR SOTO DO Cbc With Automated Diff (08/24/22 10:39) Comprehensive Metabolic Panel (08/24/22 10:39) Ua Culture If Indicated (08/24/22 10:40) Urine Culture (08/24/22 10:35) Potassium Chloride (Tablet) (K Dur Table (08/24/22 11:30) Medications Given in ED Current Medications Medications Dose Ordered Sig/Lynette Route Start Time Stop Time Status Last Admin Dose Admin Potassium Chloride 40 meq ONCE ONCE PO 08/24/22 11:30 08/24/22 11:31 DC 08/24/22 11:41 40 MEQ Vital Signs/I&O 08/24/22 10:49 Temp 35.8 Pulse 80 Resp 18 B/P (MAP) 118/75 (89) Pulse Ox 98 O2 Delivery Room Air Capillary Refill : Departure Communication (Admissions) The patient initially told that she had not had any issues with nausea vomiting during her . After her labs came back with hypokalemia, ketones in her urine I asked her about her diet recently. She states "I have not been able to keep anything down." She states when we asked her where she thought we met early in her . She has been using p.o. Zofran without much relief. She was given p.o. potassium here and was able to keep it down. We will go ahead and discharge her with prescription for Diclegis, Phenergan suppositories. Recommended she use Zofran and Diclegis initially and Phenergan suppositories if her symptoms are not controlled. She is advised to come back to the emergency department immediately if she is unable to tolerate anything by mouth. I spoke with Dr. Husain about hypokalemia during . He states as long as she is keeping down the potassium he would be okay with her being discharged with potassium supplementation and following up in 2 days for recheck with Dr. Em. The patient is comfortable with this as well. Regarding her facial swelling, headache and blurred vision this is likely related to a dental abscess. We will give her antibiotics. This should work for the trace bacteria she has in her urine as well. She is discharged home with close follow-up. There is no evidence for preeclampsia at this time. Impression Primary Impression: Hypokalemia Additional Impressions: Right facial swelling Headache Qualified Codes: R51.9 - Headache, unspecified Nausea & vomiting Qualified Codes: R11.2 - Nausea with vomiting, unspecified Dental abscess Disposition: 01 HOME, SELF-CARE Condition: Stable Departure-Patient Inst. Referrals: NO,LOCAL PHYSICIAN (PCP/Family) Primary Care Physician Add. Discharge Instructions: Please take the antibiotics as prescribed until they are gone. You were found to have low potassium levels, this is likely related to vomiting. Please use the likely just and Zofran as needed. If these are not working use the methods any suppository. Please note the Diclegis and the promethazine may make you drowsy. Please increase potassium-containing foods such as green leafy vegetables in your diet over the next several days. Take the potassium supplement as prescribed. Follow-up with Dr. Em in 2 days for repeat your potassium. Return to the emergency department immediately if you are unable to tolerate anything by mouth as she may need admitted to replace her potassium. Regarding facial swelling, I think this is a dental abscess. Take the antibiotics as prescribed. You do have some slight bacteria in your urine and this should cover that as well. All discharge instructions reviewed with patient and/or family. Voiced understanding. Scripts Potassium Chloride (K-Tab ER) 20 Meq Tablet.er 40 MEQ PO DAILY for 10 Days, #20 TAB Prov: APOLINAR SOTO DO 08/24/22 Amoxicillin (Amoxicillin) 500 Mg Capsule 500 MG PO TID for 7 Days, #21 CAP Prov: APOLINAR SOTO DO 08/24/22 Promethazine HCl (Promethazine Suppository) 12.5 Mg Supp.rect 12.5 MG RC TID for Nausea for 10 Days, #30 SUPP.RECT Prov: APOLINAR SOTO DO 08/24/22 Doxylamine/Pyridoxine HCl (Naveed Figueroa 10-10 mg Tablet) 10 Mg-10 Mg Tablet.dr 1 EACH PO HS for 30 Days, #30 TAB Prov: APOLINAR SOTO DO 08/24/22 APOLINAR SOTO DO Aug 24, 2022 10:44
[2022-08-24 10:46] LABS: BACTERIA,URINE FEW /HPF; RBC,URINE 50-100 /HPF
[2022-08-24 10:47] LABS: WBC,URINE 0-2 /HPF
[2022-08-24 10:49] LABS: BASOPHILS # (AUTO) 0.1 10^3/uL (0.0-0.1); BASOPHILS % (AUTO) 0 % (0-10); EOSINOPHILS % (AUTO) 0 % (0-10); HEMATOCRIT 33 % (35-52); HEMOGLOBIN 10.6 g/dL (11.5-16.0); LYMPHOCYTES # (AUTO) 1.9 10^3/uL (1.0-4.0); LYMPHOCYTES % (AUTO) 15 % (12-44); MEAN CORPUSCULAR HEMOGLOBIN 29 pg (25-34); MEAN CORPUSCULAR HGB CONC 32 g/dL (32-36); MEAN CORPUSCULAR VOLUME 88 fL (80-99); MEAN PLATELET VOLUME 8.3 fL (9.0-12.2); MONOCYTES # (AUTO) 0.5 10^3/uL (0.0-1.0); MONOCYTES % (AUTO) 4 % (0-12); NEUTROPHILS # (AUTO) 10.3 10^3/uL (1.8-7.8); NEUTROPHILS % (AUTO) 80 % (42-75); PLATELET COUNT 398 10^3/uL (130-400); WHITE BLOOD COUNT 12.9 10^3/uL (4.3-11.0)
[2022-08-24 11:10] LABS: BILIRUBIN,TOTAL 0.7 MG/DL (0.1-1.0); CALCIUM 8.6 MG/DL (8.5-10.1); CREATININE SERUM 0.4 MG/DL (0.60-1.30); POTASSIUM 2.9 MMOL/L (3.6-5.0)
[2022-08-24 11:11] LABS: ALBUMIN 3.4 GM/DL (3.2-4.5); TOTAL PROTEIN 6.4 GM/DL (6.4-8.2)
[2022-08-24] MEDS ORDERED: KCL 20 MEQ TAB (K-DUR) PO ONE (11:30)
[2022-08-24] MEDS ORDERED: DOXY1TAB3 PO (11:39)
[2022-08-24] MEDS ORDERED: PROM12.566 RC (11:39)
[2022-08-24] MEDS ORDERED: AMOX500C2 PO (11:40)
[2022-08-24] MEDS ORDERED: POTA-53 PO (11:42)
[2022-08-24 11:49] VITALS: BP 125/72
== END 2022-08-24 11:51 | disposition home or self-care (01) ==
LOC: EDUNIT# 10:27 → ER FS 10:30
DX: O99.283 Endocrine, nutritional and metabolic diseases complicating pregnancy, third trimester (principal); E87.6 Hypokalemia; O99.613 Diseases of the digestive system complicating pregnancy, third trimester; K04.7 Periapical abscess without sinus; O21.9 Vomiting of pregnancy, unspecified; Z28.310 Unvaccinated for COVID-19; Z3A.29 29 weeks gestation of pregnancy
CPT/HCPCS: 36415; 80053; 81000; 85025; 87088

== ENCOUNTER 2022-11-04 07:18 | Inpatient (IN) | payer MEDICAID ==
[2022-11-04] VITALS (65 sets, daily range): BP systolic 97–154; BP diastolic 54–99
[~2022-11-04] VITALS: Ht 162.6 cm; Wt 67.5 kg
[~2022-11-04 07:18] MED LIST changes: +AMOX500C2 PO; +DOXY1TAB3 PO; +POTA-53 PO; +PROM12.566 RC
[2022-11-04] MEDS: D5 LR IV SOLUTION 1,000 ML IV SCH ×3 (08:20→20:54)
[2022-11-04] MEDS: OXYTOCIN PRE-MIX DRIP 500 ML IV SCH ×4 (08:30→21:32)
--- NOTE | 2022-11-04 08:39 | History & Physical-OB ---
OB - Chief Complaint & HPI Date/Time Date of Admission: Date of Admission: Nov 04, 2022 at 07:18 Date seen by a Provider: Nov 04, 2022 Time Seen by a Provider: 08:00 Chief Complaint/History OB-Reason for Admission/Chief: Induction of Labor Hx : 3 Hx Para: 1 Expected Date of Delivery: Nov 10, 2022 Gestational Age in Weeks: 39 Gestational Age in Days: 1 History of Labs A Neg, Ab neg, Rub Non Immune HIV/RPR/HepB/C NR GC/Chyl neg GTT normal GBS Neg Allergies and Home Medications Allergies Coded Allergies: No Known Drug Allergies (Unverified , 12/11/19) Patient Home Medication List Home Medication List Reviewed: Yes Amoxicillin (Amoxicillin) 500 Mg Capsule, 500 MG PO TID Prescribed by: APOLINAR SOTO MD on 08/24/22 1140 Amoxicillin/Potassium Clav (Augmentin 500-125 Tablet) 500 Mg-125 Mg Tablet, 1 EACH PO BID Prescribed by: Sophie House on 05/02/22 1308 Amoxicillin/Potassium Clav (Amox Tr-K Clv 875-125 mg Tab) 875 Mg-125 Mg Tablet, 1 EACH PO BID Prescribed by: WILBER LAZO on 07/24/22 1426 Cephalexin (Cephalexin) 500 Mg Tablet, 500 MG PO QID Prescribed by: WILBER LAZO on 01/26/20 0047 Cephalexin (Cephalexin) 500 Mg Tablet, 500 MG PO TID Prescribed by: RAMÓN INGRAM on 05/30/22 1819 Doxylamine/Pyridoxine HCl (Diclegis Dr 10-10 mg Tablet) 10 Mg-10 Mg Tablet.dr, 1 EACH PO HS Prescribed by: APOLINAR SOTO MD on 08/24/22 1139 Loratadine (Claritin) 10 Mg Tab.rapdis, 10 MG PO BID Prescribed by: RAMÓN INGRAM on 07/05/22 1421 Nitrofurantoin Monohyd/M-Cryst (Macrobid 100 mg Capsule) 100 Mg Capsule, 1 TAB PO BID Prescribed by: WILBER LAZO on 08/12/22 1419 Ofloxacin (Ofloxacin) 0.3 % Drops, 10 DROPS OT DAILY Prescribed by: WILBER LAZO on 07/24/22 1426 Ondansetron (Ondansetron Odt) 4 Mg Tab.rapdis, 4 MG SL Q4H PRN for NAUSEA/VOMITING Prescribed by: RAMÓN INGRAM on 05/30/22 1820 Potassium Chloride (K-Tab ER) 20 Meq Tablet.er, 40 MEQ PO DAILY Prescribed by: APOLINAR SOTO MD on 08/24/22 1142 Promethazine HCl (Promethazine Suppository) 12.5 Mg Supp.rect, 12.5 MG RC TID Prescribed by: APOLINAR SOTO MD on 08/24/22 1139 Sulfamethoxazole/Trimethoprim (Bactrim Ds Tablet) 800 Mg-160 Mg Tablet, 1 EACH PO BID Prescribed by: RAMÓN INGRAM on 02/12/22 1332 OB - History Hx of Present Care: Yes Ultrasounds: Normal mid trimester US Obstetrical Complications: None Medical Complications: None Obstetrical History Hx : 3 Hx Para: 1 Number of Living Children: 1 Patient Past Medical History None Social History/Family History Alcohol Use: Denies Use Recreational Drug Use: No Smoking Cessation: Current some day smoker 2nd Hand Smoke Exposure: No Immunizations First/Initial COVID19 Vaccine: DENIES Second COVID19 Vaccination: DENIES Third COVID19 Vaccination Date: DENIES Tetanus Booster (TDap): Less than 5yrs Rubella: not immune RPR/VDRL: Negative GBS Status: Negative HBsAG: Negative OB - Admission Exam Physical Exam HEENT: NCAT Heart: Rhythm Normal Lungs: Clear Abdomen: Gravid Cervical Dilatation: 2cm Effacement: 50% Station: -2 Membranes: Intact Heart Rate: 130's Accelerations: Accelerations Present Decelerations: No Decelerations Contractions on Admission: >10 Minutes Apart Velazco Scoring Tool (Modified) Dilation (cm): 1-2cm (1) Effacement (%): 51-79% (2) Descent/Station: -2 (1) Cervix Consistency: Medium(1) Cervix Position: Posterior (0) Add 1 point for: Each previous vaginal delivery (1) Velazco Score: 6 OB - Assessment/Plan/Diagnosis Assessment Assessment: induction of labor Admission Dx Third Trimester 39 week gestation Admission Status: Inpatient Order (span 2 midnights) Reason for Inpatient Admission: Labor and post care Plan Other Plan 22 yo @ 39.1 wga here for elective IOL Plan - GBS neg - Pitocin Protocol IOL - Patient desires to proceed with elective IOL Copy Copies To 1: THOMAS SYED MD, HOLLY R MD Nov 04, 2022 08:39
[2022-11-04 08:48] LABS: BASOPHILS % (AUTO) 0 % (0-10); EOSINOPHILS # (AUTO) 0.1 10^3/uL (0.0-0.3); EOSINOPHILS % (AUTO) 1 % (0-10); HEMATOCRIT 30 % (35-52); HEMOGLOBIN 10.1 g/dL (11.5-16.0); LYMPHOCYTES # (AUTO) 2.6 10^3/uL (1.0-4.0); LYMPHOCYTES % (AUTO) 26 % (12-44); MEAN CORPUSCULAR HEMOGLOBIN 28 pg (25-34); MEAN CORPUSCULAR HGB CONC 33 g/dL (32-36); MEAN CORPUSCULAR VOLUME 85 fL (80-99); MEAN PLATELET VOLUME 10.1 fL (9.0-12.2); MONOCYTES # (AUTO) 0.8 10^3/uL (0.0-1.0); MONOCYTES % (AUTO) 8 % (0-12); NEUTROPHILS # (AUTO) 6.5 10^3/uL (1.8-7.8); NEUTROPHILS % (AUTO) 64 % (42-75); PLATELET COUNT 229 10^3/uL (130-400); WHITE BLOOD COUNT 10.1 10^3/uL (4.3-11.0)
[2022-11-04] MEDS ORDERED: LIDOCAINE/EPI 2% 1:100,00 (XYLOCAINE) 20 ML VIAL INJ ONE (10:30)
[2022-11-04] MEDS ORDERED: MINERAL OIL 30 ML TOP PRN (10:30)
[2022-11-04] MEDS ORDERED: fentaNYL 2 mcg/ml BUPIVA 0.125 100 ML ONE (12:20)
[2022-11-04] MEDS ORDERED: fentaNYL INJ 100 MCG/2 ML AMP ONE (13:09)
[2022-11-04] MEDS: fentaNYL 2 mcg/ml BUPIVA 0.125 100 ML EPI SCH ×2 (13:36→20:54)
[2022-11-04] MEDS ORDERED: CATHETER FLUSH 10 ML SYR IV SCH ×2 (14:00→22:00)
[2022-11-04] MEDS ORDERED: diphenhydrAMINE 50 MG/ML INJ (BENADRYL) IV PRN (15:00)
[2022-11-04] MEDS ORDERED: NALOXONE 0.4 MG/ML 1 ML (NARCAN) VIAL IV PRN ×2 (15:00)
[2022-11-04] MEDS ORDERED: ONDANSETRON 4 MG/2 ML (SDV) Z0FRAN IV PRN (15:00)
[2022-11-04] MEDS ORDERED: METOCLOPRAMIDE INJ 10 MG/2 ML (REGLAN) IV PRN (15:00)
[2022-11-04] MEDS ORDERED: LACTATED RINGERS 1,000 ML IV SCH (15:00)
--- NOTE | 2022-11-04 17:43 | Labor Progress Note ---
Labor Progress Note Labor Progress Note Date Seen by Provider: Nov 04, 2022 Time Seen by Provider: 12:30 Subjective: Pt denies complaints. She is feeling more pressure and would like to proceed with getting her epidural Objective: / Assessment/Plan: Tyra Rubalcava is a (22 /Para 3 / 1,Gestational Age (wks)39.1 here for elective IOL CEFM/TOCO Continue pitocin protocol Anesthesia: Desires epidural GBS neg Anticipate vaginal delivery. Vitals - Labs Vital Signs - I&O Vital Signs Date Time Temp Pulse Resp B/P (MAP) Pulse Ox O2 Delivery O2 Flow Rate FiO2 11/04/22 17:30 35.8 51 18 110/59 (76) Room Air 11/04/22 17:15 54 18 108/65 (79) Room Air 11/04/22 17:00 65 18 119/78 (92) Room Air 11/04/22 16:45 56 18 110/73 (85) Room Air 11/04/22 16:30 70 18 112/73 (86) Room Air 11/04/22 16:15 56 18 116/78 (91) Room Air 11/04/22 16:00 35.8 53 18 104/70 (81) Room Air 11/04/22 15:45 66 18 110/68 (82) Room Air 11/04/22 15:30 60 18 118/68 (85) Room Air 11/04/22 15:15 81 18 107/73 (84) Room Air 11/04/22 15:00 36.1 71 18 104/67 (79) Room Air 11/04/22 14:45 85 18 111/68 (82) Room Air 11/04/22 14:30 83 18 114/65 (81) Room Air 11/04/22 14:15 85 18 108/65 (79) Room Air 11/04/22 14:10 64 18 109/65 (80) 97 Room Air 11/04/22 14:05 96 18 118/69 (85) 98 Room Air 11/04/22 14:00 36.3 83 18 97/61 (73) 97 Room Air 11/04/22 13:55 101 18 116/68 (84) 98 Room Air 11/04/22 13:50 90 18 116/69 (85) 98 Room Air 11/04/22 13:45 106 18 118/70 (86) 99 Room Air 11/04/22 13:40 102 18 105/63 (77) 99 Room Air 11/04/22 13:35 57 18 119/69 (86) 99 Room Air 11/04/22 13:30 64 18 132/75 (94) 99 Room Air 11/04/22 13:25 54 18 100 Room Air 11/04/22 13:20 65 18 117/79 (92) 100 Room Air 11/04/22 13:15 60 18 121/75 (90) 99 Room Air 11/04/22 13:10 60 18 134/82 (99) 100 Room Air 11/04/22 13:00 66 18 132/79 (96) Room Air 11/04/22 12:45 67 18 120/73 (89) Room Air 11/04/22 12:30 70 18 114/64 (81) Room Air 11/04/22 12:15 71 18 130/82 (98) Room Air 11/04/22 12:00 68 18 125/80 (95) Room Air 11/04/22 11:45 36.3 66 18 125/81 (96) Room Air 11/04/22 11:30 66 18 133/73 (93) Room Air 11/04/22 11:00 67 18 122/74 (90) Room Air 11/04/22 10:45 65 18 106/59 (75) Room Air 11/04/22 10:30 57 18 103/62 (76) Room Air 11/04/22 10:15 57 18 104/58 (73) Room Air 11/04/22 10:00 65 18 126/84 (98) Room Air 11/04/22 09:45 60 18 97/54 (68) Room Air 11/04/22 09:30 66 18 115/73 (87) Room Air 11/04/22 09:15 69 18 113/72 (86) Room Air 11/04/22 09:00 82 18 112/78 (89) Room Air 11/04/22 08:45 98 18 120/87 (98) Room Air 11/04/22 08:30 97 18 122/82 (95) Room Air 11/04/22 07:40 36.4 101 18 98 Room Air 11/04/22 07:40 36.4 101 18 138/82 (100) 98 Room Air Labs Laboratory Tests 11/04/22 08:05: White Blood Count 10.1, Red Blood Count 3.59L, Hemoglobin 10.1L, Hematocrit 30L, Mean Corpuscular Volume 85, Mean Corpuscular Hemoglobin 28, Mean Corpuscular Hemoglobin Concent 33, Red Cell Distribution Width 14.0, Platelet Count 229, Mean Platelet Volume 10.1, Immature Granulocyte % (Auto) 1, Neutrophils (%) (Auto) 64, Lymphocytes (%) (Auto) 26, Monocytes (%) (Auto) 8, Eosinophils (%) (Auto) 1, Basophils (%) (Auto) 0, Neutrophils # (Auto) 6.5, Lymphocytes # (Auto) 2.6, Monocytes # (Auto) 0.8, Eosinophils # (Auto) 0.1, Basophils # (Auto) 0.0, Immature Granulocyte # (Auto) 0.1, Syphilis Total Antibody Negative THOMAS SYED MD Nov 04, 2022 17:43
--- NOTE | 2022-11-04 17:44 | Labor Progress Note ---
Labor Progress Note Labor Progress Note Date Seen by Provider: Nov 04, 2022 Time Seen by Provider: 17:30 Subjective: Pt denies complaints. Pain well controlled with epidural Objective: AROM clear 1729 Assessment/Plan: Tyra Rubalcava is a (22 /Para 3 / 1,Gestational Age (wks)39.1 here for elective IOL CEFM/TOCO Continue pitocin protocol Anesthesia: Epidural in place AROM clear GBS neg Anticipate vaginal delivery. Vitals - Labs Vital Signs - I&O Vital Signs Date Time Temp Pulse Resp B/P (MAP) Pulse Ox O2 Delivery O2 Flow Rate FiO2 11/04/22 17:30 35.8 51 18 110/59 (76) Room Air 11/04/22 17:15 54 18 108/65 (79) Room Air 11/04/22 17:00 65 18 119/78 (92) Room Air 11/04/22 16:45 56 18 110/73 (85) Room Air 11/04/22 16:30 70 18 112/73 (86) Room Air 11/04/22 16:15 56 18 116/78 (91) Room Air 11/04/22 16:00 35.8 53 18 104/70 (81) Room Air 11/04/22 15:45 66 18 110/68 (82) Room Air 11/04/22 15:30 60 18 118/68 (85) Room Air 11/04/22 15:15 81 18 107/73 (84) Room Air 11/04/22 15:00 36.1 71 18 104/67 (79) Room Air 11/04/22 14:45 85 18 111/68 (82) Room Air 11/04/22 14:30 83 18 114/65 (81) Room Air 11/04/22 14:15 85 18 108/65 (79) Room Air 11/04/22 14:10 64 18 109/65 (80) 97 Room Air 11/04/22 14:05 96 18 118/69 (85) 98 Room Air 11/04/22 14:00 36.3 83 18 97/61 (73) 97 Room Air 11/04/22 13:55 101 18 116/68 (84) 98 Room Air 11/04/22 13:50 90 18 116/69 (85) 98 Room Air 11/04/22 13:45 106 18 118/70 (86) 99 Room Air 11/04/22 13:40 102 18 105/63 (77) 99 Room Air 11/04/22 13:35 57 18 119/69 (86) 99 Room Air 11/04/22 13:30 64 18 132/75 (94) 99 Room Air 11/04/22 13:25 54 18 100 Room Air 11/04/22 13:20 65 18 117/79 (92) 100 Room Air 11/04/22 13:15 60 18 121/75 (90) 99 Room Air 11/04/22 13:10 60 18 134/82 (99) 100 Room Air 11/04/22 13:00 66 18 132/79 (96) Room Air 11/04/22 12:45 67 18 120/73 (89) Room Air 11/04/22 12:30 70 18 114/64 (81) Room Air 11/04/22 12:15 71 18 130/82 (98) Room Air 11/04/22 12:00 68 18 125/80 (95) Room Air 11/04/22 11:45 36.3 66 18 125/81 (96) Room Air 11/04/22 11:30 66 18 133/73 (93) Room Air 11/04/22 11:00 67 18 122/74 (90) Room Air 11/04/22 10:45 65 18 106/59 (75) Room Air 11/04/22 10:30 57 18 103/62 (76) Room Air 11/04/22 10:15 57 18 104/58 (73) Room Air 11/04/22 10:00 65 18 126/84 (98) Room Air 11/04/22 09:45 60 18 97/54 (68) Room Air 11/04/22 09:30 66 18 115/73 (87) Room Air 11/04/22 09:15 69 18 113/72 (86) Room Air 11/04/22 09:00 82 18 112/78 (89) Room Air 11/04/22 08:45 98 18 120/87 (98) Room Air 11/04/22 08:30 97 18 122/82 (95) Room Air 11/04/22 07:40 36.4 101 18 98 Room Air 11/04/22 07:40 36.4 101 18 138/82 (100) 98 Room Air Labs Laboratory Tests 11/04/22 08:05: White Blood Count 10.1, Red Blood Count 3.59L, Hemoglobin 10.1L, Hematocrit 30L, Mean Corpuscular Volume 85, Mean Corpuscular Hemoglobin 28, Mean Corpuscular Hemoglobin Concent 33, Red Cell Distribution Width 14.0, Platelet Count 229, Mean Platelet Volume 10.1, Immature Granulocyte % (Auto) 1, Neutrophils (%) (Auto) 64, Lymphocytes (%) (Auto) 26, Monocytes (%) (Auto) 8, Eosinophils (%) (Auto) 1, Basophils (%) (Auto) 0, Neutrophils # (Auto) 6.5, Lymphocytes # (Auto) 2.6, Monocytes # (Auto) 0.8, Eosinophils # (Auto) 0.1, Basophils # (Auto) 0.0, Immature Granulocyte # (Auto) 0.1, Syphilis Total Antibody Negative THOMAS SYED MD Nov 04, 2022 17:44
[2022-11-04] MEDS ORDERED: MEASLES,MUMPS,RUBELLA 1 EA INJ SQ ONE (21:45)
--- NOTE | 2022-11-04 21:48 | OB Labor & Delivery Record ---
Vag Delivery Note Vag Delivery Note Date of Delivery: 11/04/22 Preoperative Diagnosis: Tyra Rubalcava is a (22 /Para 3 / 1, Gestational Age (wks)39.1 here for elective IOL Postoperative Diagnosis: Same Surgeon: THOMAS SYED MD Cannoneer: None Anesthesia: Epidural Delivery Type: @ 2103 Findings: Viable Female infant, apgars 8/9, weight 7#11 3485 grams Lacerations: 2nd degree perineal Intact placenta with 3 vessel cord. No nuchal cord, body cord or shoulder dystocia Tortuous spiral clump in the cord, no signs of internal knot Estimated Blood Loss: 150 ml Complications: None Condition: Stable Description of Procedure: The patient is a 22 year old female who presented for elective IOL. She was admitted and informed consent was obtained. Her labor course was remarkable for pitocin induction and augmentation of labor. She progressed to complete dilatation and began to push. She was then set up for delivery. The infant's head was delivered atraumatically in the RAGINI position. The shoulders and remainder of the infant's body were then delivered without difficulty. Upon delivery, the was vigorous and placed on maternal chest and the mouth and nares were bulb suctioned. After a delay of 2 mins cord was doubly clamped and cut by FOB and the infant remained on maternal chest, she was then taken to warmer for suction and more stimulation for grunting and retractions. An intact placenta with 3-vessel cord delivered via Jessica and there was found to be minimal bleeding.~ Vigorous fundal massage was performed and the fundus was found to be firm. IV oxytocin was given. Examin ation of the vagina and perineum revealed a 2nd degree laceration repaired in the usual fashion with 3-0 vicryl rapide suture. Following the repair, sponge, instrument and needle counts were correct. Mom and baby were both in stable condition in the labor suite. Vitals - Labs Vital Signs - I&O Vital Signs Date Time Temp Pulse Resp B/P (MAP) Pulse Ox O2 Delivery O2 Flow Rate FiO2 11/04/22 19:00 67 18 113/72 (86) Room Air 11/04/22 18:45 71 18 119/77 (91) 100 Room Air 11/04/22 18:30 68 18 118/77 (91) 100 Room Air 11/04/22 18:15 79 18 110/63 (79) 100 Room Air 11/04/22 18:00 36.3 60 18 100 Room Air 11/04/22 17:45 64 18 136/81 (99) Room Air 11/04/22 17:30 35.8 51 18 110/59 (76) Room Air 11/04/22 17:15 54 18 108/65 (79) Room Air 11/04/22 17:00 65 18 119/78 (92) Room Air 11/04/22 16:45 56 18 110/73 (85) Room Air 11/04/22 16:30 70 18 112/73 (86) Room Air 11/04/22 16:15 56 18 116/78 (91) Room Air 11/04/22 16:00 35.8 53 18 104/70 (81) Room Air 11/04/22 15:45 66 18 110/68 (82) Room Air 11/04/22 15:30 60 18 118/68 (85) Room Air 11/04/22 15:15 81 18 107/73 (84) Room Air 11/04/22 15:00 36.1 71 18 104/67 (79) Room Air 11/04/22 14:45 85 18 111/68 (82) Room Air 11/04/22 14:30 83 18 114/65 (81) Room Air 11/04/22 14:15 85 18 108/65 (79) Room Air 11/04/22 14:10 64 18 109/65 (80) 97 Room Air 11/04/22 14:05 96 18 118/69 (85) 98 Room Air 11/04/22 14:00 36.3 83 18 97/61 (73) 97 Room Air 11/04/22 13:55 101 18 116/68 (84) 98 Room Air 11/04/22 13:50 90 18 116/69 (85) 98 Room Air 11/04/22 13:45 106 18 118/70 (86) 99 Room Air 11/04/22 13:40 102 18 105/63 (77) 99 Room Air 11/04/22 13:35 57 18 119/69 (86) 99 Room Air 11/04/22 13:30 64 18 132/75 (94) 99 Room Air 11/04/22 13:25 54 18 100 Room Air 11/04/22 13:20 65 18 117/79 (92) 100 Room Air 11/04/22 13:15 60 18 121/75 (90) 99 Room Air 11/04/22 13:10 60 18 134/82 (99) 100 Room Air 11/04/22 13:00 66 18 132/79 (96) Room Air 11/04/22 12:45 67 18 120/73 (89) Room Air 11/04/22 12:30 70 18 114/64 (81) Room Air 11/04/22 12:15 71 18 130/82 (98) Room Air 11/04/22 12:00 68 18 125/80 (95) Room Air 11/04/22 11:45 36.3 66 18 125/81 (96) Room Air 11/04/22 11:30 66 18 133/73 (93) Room Air 11/04/22 11:00 67 18 122/74 (90) Room Air 11/04/22 10:45 65 18 106/59 (75) Room Air 11/04/22 10:30 57 18 103/62 (76) Room Air 11/04/22 10:15 57 18 104/58 (73) Room Air 11/04/22 10:00 65 18 126/84 (98) Room Air 11/04/22 09:45 60 18 97/54 (68) Room Air 11/04/22 09:30 66 18 115/73 (87) Room Air 11/04/22 09:15 69 18 113/72 (86) Room Air 11/04/22 09:00 82 18 112/78 (89) Room Air 11/04/22 08:45 98 18 120/87 (98) Room Air 11/04/22 08:30 97 18 122/82 (95) Room Air 11/04/22 07:40 36.4 101 18 98 Room Air 11/04/22 07:40 36.4 101 18 138/82 (100) 98 Room Air Labs Laboratory Tests 11/04/22 08:05: White Blood Count 10.1, Red Blood Count 3.59L, Hemoglobin 10.1L, Hematocrit 30L, Mean Corpuscular Volume 85, Mean Corpuscular Hemoglobin 28, Mean Corpuscular Hemoglobin Concent 33, Red Cell Distribution Width 14.0, Platelet Count 229, Mean Platelet Volume 10.1, Immature Granulocyte % (Auto) 1, Neutrophils (%) (Auto) 64, Lymphocytes (%) (Auto) 26, Monocytes (%) (Auto) 8, Eosinophils (%) (Auto) 1, Basophils (%) (Auto) 0, Neutrophils # (Auto) 6.5, Lymphocytes # (Auto) 2.6, Monocytes # (Auto) 0.8, Eosinophils # (Auto) 0.1, Basophils # (Auto) 0.0, Immature Granulocyte # (Auto) 0.1, Syphilis Total Antibody Negative THOMAS SYED MD Nov 04, 2022 21:48
[2022-11-04] MEDS: IBUPROFEN 600 MG (MOTRIN) TAB PO SCH (22:26)
[2022-11-04] MEDS: ACETAMINOPHEN 500 MG TAB (TYLENOL) PO SCH (22:27)
[2022-11-04] MEDS: WITCH HAZEL(TUCKS) 40 EA JAR TOP PRN (23:46)
[2022-11-04] MEDS: BENZOCAINE/MENTHOL (DERMOPLAST) 56 ML CAN TP PRN (23:46)
[2022-11-05] VITALS (26 sets, daily range): BP systolic 83–149; BP diastolic 43–106
[2022-11-05] MEDS ORDERED: METHYLERGONOVINE 0.2 MG/ML (METHERGINE) AMP ONE (00:27)
[2022-11-05] MEDS ORDERED: CARBOPROST (HEMABATE) 250 MCG/ML AMP IM ONE (00:28)
[2022-11-05] MEDS ORDERED: OXYTOCIN PRE-MIX DRIP 500 ML IV ONE (00:38)
[2022-11-05] MEDS ORDERED: TRANEXAMIC ACID 100 MG/ML 10 ML INJECTION ONE (00:43)
[2022-11-05] MEDS ORDERED: NS IV 500 ML 500 ML IV SCH (01:00)
[2022-11-05] MEDS ORDERED: NS IV 1000 ML 1,000 ML ONE (01:00)
[2022-11-05 01:19] LABS: BASOPHILS # (AUTO) 0.1 10^3/uL (0.0-0.1); BASOPHILS % (AUTO) 0 % (0-10); EOSINOPHILS % (AUTO) 0 % (0-10); HEMATOCRIT 25 % (35-52); HEMOGLOBIN 8.1 g/dL (11.5-16.0); LYMPHOCYTES # (AUTO) 3.7 10^3/uL (1.0-4.0); LYMPHOCYTES % (AUTO) 17 % (12-44); MEAN CORPUSCULAR HEMOGLOBIN 28 pg (25-34); MEAN CORPUSCULAR HGB CONC 33 g/dL (32-36); MEAN CORPUSCULAR VOLUME 86 fL (80-99); MEAN PLATELET VOLUME 10.1 fL (9.0-12.2); MONOCYTES # (AUTO) 1.9 10^3/uL (0.0-1.0); MONOCYTES % (AUTO) 9 % (0-12); NEUTROPHILS # (AUTO) 15.3 10^3/uL (1.8-7.8); NEUTROPHILS % (AUTO) 73 % (42-75); PLATELET COUNT 287 10^3/uL (130-400); WHITE BLOOD COUNT 21.1 10^3/uL (4.3-11.0)
[2022-11-05] MEDS ORDERED: CARBOPROST (HEMABATE) 250 MCG/ML AMP IM PRN (01:30)
[2022-11-05] MEDS ORDERED: TRANEXAMIC ACID INJECTION 1,000 MG in NS (IVPB) 50 ML IV ONE (01:30)
[2022-11-05] MEDS ORDERED: D5 LR IV SOLUTION 1,000 ML IV SCH (01:30)
[2022-11-05] MEDS ORDERED: OXYTOCIN PRE-MIX DRIP 500 ML IV SCH (01:30)
[2022-11-05] MEDS ORDERED: METHYLERGONOVINE 0.2 MG/ML (METHERGINE) AMP IM PRN (01:30)
[2022-11-05] MEDS ORDERED: TRANEXAMIC ACID 100 MG/ML 10 ML INJECTION IV ONE (01:45)
--- NOTE | 2022-11-05 01:56 | Progress Note ---
Progress Note Assessment/Plan Date Seen by Provider: Nov 05, 2022 Time Seen by Provider: 01:50 Events since last exam Called to patient bedside due to hemorrhage. Patient delivered at 2103 with EBL 150mL and second degree laceration repair. She began having increased vaginal bleeding at 0010, by 0020 she had >1500 EBL. Patient then vomited and passed a large clot with estimated EBL of 1705. Patient given IV Pitocin, Methergine and Hemabate prior to contacting me to come in. She was then given TXA. By my arrival bleeding has slowed significantly. Total EBL is 2370. Patient had another episode of vomiting after my arrival with no further passing of clots or increase in bleeding. Exam done with swollen labia, minimal bleeding at this time. Fundus firm and predominately on the right side. Further vaginal exam deferred due to decrease in bleeding. Hb 8.1 down from 10.1. Platelets normal. No history of PPH with previous or history abnormal bleeding to indicate clotting disorder Assessment/Plan Hemorrhage - EBL 2370mL - PPH protocol initated - Pitocin, Methergine, Hemabate and TXA given - will transfuse 2 units PRBC as I anticipate Hb will drop further - recheck H&H 2 hours after blood, check coags - vitals stable - last BP 125/80, HR 105 - continue close monitoring; patient currently stable and feeling improved with appropriate lochia Vitals Last set of Vitals Signs Vital Signs Date Time Temp Pulse Resp B/P (MAP) Pulse Ox O2 Delivery O2 Flow Rate FiO2 11/05/22 01:03 131 18 149/102 (118) 100 Room Air 11/05/22 00:15 36.9 I&O I&O Intake and Output 11/05/22 00:00 Intake Total 1000.5 ml Balance 1000.5 ml Intake IV Total 1000.5 ml Blood Loss Quantification Method 150 ml Daily Weight Change No Labs Laboratory Tests 11/04/22 08:05: White Blood Count 10.1, Red Blood Count 3.59L, Hemoglobin 10.1L, Hematocrit 30L, Mean Corpuscular Volume 85, Mean Corpuscular Hemoglobin 28, Mean Corpuscular Hemoglobin Concent 33, Red Cell Distribution Width 14.0, Platelet Count 229, Mean Platelet Volume 10.1, Immature Granulocyte % (Auto) 1, Neutrophils (%) (Auto) 64, Lymphocytes (%) (Auto) 26, Monocytes (%) (Auto) 8, Eosinophils (%) (Auto) 1, Basophils (%) (Auto) 0, Neutrophils # (Auto) 6.5, Lymphocytes # (Auto) 2.6, Monocytes # (Auto) 0.8, Eosinophils # (Auto) 0.1, Basophils # (Auto) 0.0, Immature Granulocyte # (Auto) 0.1, Syphilis Total Antibody Negative 11/05/22 01:11: White Blood Count 21.1H, Red Blood Count 2.89L, Hemoglobin 8.1L, Hematocrit 25L, Mean Corpuscular Volume 86, Mean Corpuscular Hemoglobin 28, Mean Corpuscular Hemoglobin Concent 33, Red Cell Distribution Width 14.1, Platelet Count 287, Mean Platelet Volume 10.1, Immature Granulocyte % (Auto) 1, Neutrophils (%) (Auto) 73, Lymphocytes (%) (Auto) 17, Monocytes (%) (Auto) 9, Eosinophils (%) (Auto) 0, Basophils (%) (Auto) 0, Neutrophils # (Auto) 15.3H, Lymphocytes # (Auto) 3.7, Monocytes # (Auto) 1.9H, Eosinophils # (Auto) 0.0, Basophils # (Auto) 0.1, Immature Granulocyte # (Auto) 0.1, Percent Immature Platelet Fraction 2.9 AHMET DELGADILLO 28, 2023 01:56
[2022-11-05 02:20] LABS: INR 1.1 (0.8-1.4); PROTHROMBIN TIME PATIENT 14.7 SEC (12.2-14.7)
[2022-11-05 02:34] LABS: FIBRIN DEGRADATION PRODUCTS 5.12 UG/ML (0.00-0.49)
[2022-11-05] MEDS ORDERED: NS IV 500 ML 500 ML ONE (03:42)
[2022-11-05] MEDS: ACETAMINOPHEN 500 MG TAB (TYLENOL) PO SCH ×4 (03:45→22:00)
[2022-11-05] MEDS: IBUPROFEN 600 MG (MOTRIN) TAB PO SCH ×4 (03:45→22:00)
[2022-11-05 07:34] LABS: BASOPHILS # (AUTO) 0.1 10^3/uL (0.0-0.1); BASOPHILS % (AUTO) 0 % (0-10); EOSINOPHILS % (AUTO) 0 % (0-10); HEMATOCRIT 31 % (35-52); HEMOGLOBIN 10.2 g/dL (11.5-16.0); LYMPHOCYTES # (AUTO) 1.9 10^3/uL (1.0-4.0); LYMPHOCYTES % (AUTO) 9 % (12-44); MEAN CORPUSCULAR HEMOGLOBIN 29 pg (25-34); MEAN CORPUSCULAR HGB CONC 33 g/dL (32-36); MEAN CORPUSCULAR VOLUME 87 fL (80-99); MEAN PLATELET VOLUME 9.6 fL (9.0-12.2); MONOCYTES # (AUTO) 1.5 10^3/uL (0.0-1.0); MONOCYTES % (AUTO) 8 % (0-12); NEUTROPHILS % (AUTO) 83 % (42-75); PLATELET COUNT 185 10^3/uL (130-400); WHITE BLOOD COUNT 20.6 10^3/uL (4.3-11.0)
[2022-11-05] MEDS ORDERED: RHO(D) IMMUNE GLOBULIN 300 MCG/2 ML SYRINGE IM/IV ONE (08:30)
[2022-11-05] MEDS: PRENATAL VITAMIN 1 EA TAB PO SCH (09:34)
[2022-11-05] MEDS: DOCUSATE SODIUM 100 MG (COLACE) CAP PO SCH ×2 (09:34→22:00)
--- NOTE | 2022-11-05 10:01 | Anesthesia-Regional Post-Op ---
Regional Patient Condition Mental Status: Alert, Oriented x3 Circulation: Same as Pre-Op Headache: Absent Sensation: Full Recovery Motor Block: Absent Post Op Complications Complications None Follow Up Care/Instructions Patient Instructions None needed. Anesthesia/Patient Condition Patient is doing well, no complaints, stable vital signs, no apparent adverse anesthesia problems. No complications reported per nursing. DIDI LOPEZ CRNA Nov 05, 2022 10:01
--- NOTE | 2022-11-05 11:32 | Postpartum Progress Note ---
Note Note Day # 1 Subjective: Patient had PPH overnight with EBL 2300. Recieved 2 units prbc. Bleeding slowed following Pit, Methergine, Hemabate and TXA. Bleeding has remained normal flow overnight and currently. Patient able to ambulate without dizziness. Nausea resolved. Patient is without complaints. Ambulating, voiding. Tolerating a regular diet without nausea or vomiting. Normal lochia. Pain is well controlled with oral pain medications. Bottle feeding. Objective: Vital Signs Vital Signs 11/05/22 09:29 Temp 36.9 Pulse 60 Resp 16 B/P (MAP) 103/65 (78) Pulse Ox 99 O2 Delivery Room Air Physical Exam: General - Alert and oriented, no apparent distress Abdomen - Soft, appropriately tender to palpation, non-distended, fundus firm at umbilicus Extremities - no edema, negative Lashaun's bilaterally Assessment: post- day # 1, status post spontanous vaginal delivery. hemorrhage. Recovering well, hemodynamically stable Plan: Routine care. Encourage breast feeding. Encourage ambulation. Ferrous sulfate supplementation. Repeat CBC in am. Plan for discharge tomorrow. Vitals - Labs Vital Signs - I&O Vital Signs Date Time Temp Pulse Resp B/P (MAP) Pulse Ox O2 Delivery O2 Flow Rate FiO2 11/05/22 09:29 36.9 60 16 103/65 (78) 99 Room Air 11/05/22 05:23 36.2 70 16 118/80 (93) 100 Room Air 11/05/22 05:23 36.2 70 16 118/80 100 Room Air 11/05/22 04:25 66 16 119/83 (95) 100 Room Air 11/05/22 04:10 36.3 67 16 120/87 100 Room Air 11/05/22 03:56 36.1 65 16 129/95 100 Room Air 11/05/22 03:30 98 16 130/86 (101) 100 Room Air 11/05/22 03:20 36.1 85 16 141/103 100 Room Air 11/05/22 03:00 94 16 131/95 (107) 100 Room Air 11/05/22 02:35 116 16 135/101 (112) 100 Room Air 11/05/22 02:16 35.8 104 16 132/101 100 Room Air 11/05/22 02:02 35.9 101 16 129/96 100 Room Air 11/05/22 01:50 116 18 132/98 (109) 100 Room Air 11/05/22 01:40 109 18 140/100 (113) 100 Room Air 11/05/22 01:30 62 18 133/97 (109) 100 Room Air 11/05/22 01:20 115 18 141/106 (118) 100 Room Air 11/05/22 01:10 115 18 141/104 (116) 100 Room Air 11/05/22 01:03 131 18 149/102 (118) 100 Room Air 11/05/22 00:53 128 18 128/92 (104) 100 Room Air 11/05/22 00:45 95 18 108/54 (72) 100 Room Air 11/05/22 00:39 60 18 84/54 (64) 100 Room Air 11/05/22 00:32 59 18 85/43 (57) 100 Room Air 11/05/22 00:28 51 18 83/52 (62) 100 Room Air 11/05/22 00:15 36.9 98 18 129/69 (89) 99 Room Air 11/04/22 22:58 84 18 130/77 (94) Room Air 11/04/22 22:27 93 18 126/82 (97) Room Air 11/04/22 22:13 87 18 132/84 (100) Room Air 11/04/22 21:57 104 18 135/89 (104) Room Air 11/04/22 21:42 108 18 144/91 (108) Room Air 11/04/22 21:27 114 18 140/85 (103) Room Air 11/04/22 21:12 112 18 146/86 (106) Room Air 11/04/22 21:00 121 18 145/99 (114) Room Air 11/04/22 20:45 120 18 154/96 (115) Room Air 11/04/22 20:30 100 18 147/76 (99) Room Air 11/04/22 20:15 76 18 123/78 (93) Room Air 11/04/22 20:00 80 18 121/77 (92) Room Air 11/04/22 19:45 89 18 107/73 (84) Room Air 11/04/22 19:30 89 18 110/76 (87) Room Air 11/04/22 19:15 68 18 126/81 (96) Room Air 11/04/22 19:00 67 18 113/72 (86) Room Air 11/04/22 18:45 71 18 119/77 (91) 100 Room Air 11/04/22 18:30 68 18 118/77 (91) 100 Room Air 11/04/22 18:15 79 18 110/63 (79) 100 Room Air 11/04/22 18:00 36.3 60 18 100 Room Air 11/04/22 17:45 64 18 136/81 (99) Room Air 11/04/22 17:30 35.8 51 18 110/59 (76) Room Air 11/04/22 17:15 54 18 108/65 (79) Room Air 11/04/22 17:00 65 18 119/78 (92) Room Air 11/04/22 16:45 56 18 110/73 (85) Room Air 11/04/22 16:30 70 18 112/73 (86) Room Air 11/04/22 16:15 56 18 116/78 (91) Room Air 11/04/22 16:00 35.8 53 18 104/70 (81) Room Air 11/04/22 15:45 66 18 110/68 (82) Room Air 11/04/22 15:30 60 18 118/68 (85) Room Air 11/04/22 15:15 81 18 107/73 (84) Room Air 11/04/22 15:00 36.1 71 18 104/67 (79) Room Air 11/04/22 14:45 85 18 111/68 (82) Room Air 11/04/22 14:30 83 18 114/65 (81) Room Air 11/04/22 14:15 85 18 108/65 (79) Room Air 11/04/22 14:10 64 18 109/65 (80) 97 Room Air 11/04/22 14:05 96 18 118/69 (85) 98 Room Air 11/04/22 14:00 36.3 83 18 97/61 (73) 97 Room Air 11/04/22 13:55 101 18 116/68 (84) 98 Room Air 11/04/22 13:50 90 18 116/69 (85) 98 Room Air 11/04/22 13:45 106 18 118/70 (86) 99 Room Air 11/04/22 13:40 102 18 105/63 (77) 99 Room Air 11/04/22 13:35 57 18 119/69 (86) 99 Room Air 11/04/22 13:30 64 18 132/75 (94) 99 Room Air 11/04/22 13:25 54 18 100 Room Air 11/04/22 13:20 65 18 117/79 (92) 100 Room Air 11/04/22 13:15 60 18 121/75 (90) 99 Room Air 11/04/22 13:10 60 18 134/82 (99) 100 Room Air 11/04/22 13:00 66 18 132/79 (96) Room Air 11/04/22 12:45 67 18 120/73 (89) Room Air 11/04/22 12:30 70 18 114/64 (81) Room Air 11/04/22 12:15 71 18 130/82 (98) Room Air 11/04/22 12:00 68 18 125/80 (95) Room Air 11/04/22 11:45 36.3 66 18 125/81 (96) Room Air 11/04/22 11:30 66 18 133/73 (93) Room Air I & O 11/05/22 07:00 Intake Total 1500.5 ml Balance 1500.5 ml Labs Laboratory Tests 11/05/22 01:11: White Blood Count 21.1H, Red Blood Count 2.89L, Hemoglobin 8.1L, Hematocrit 25L, Mean Corpuscular Volume 86, Mean Corpuscular Hemoglobin 28, Mean Corpuscular Hemoglobin Concent 33, Red Cell Distribution Width 14.1, Platelet Count 287, Mean Platelet Volume 10.1, Immature Granulocyte % (Auto) 1, Neutrophils (%) (Auto) 73, Lymphocytes (%) (Auto) 17, Monocytes (%) (Auto) 9, Eosinophils (%) (Auto) 0, Basophils (%) (Auto) 0, Neutrophils # (Auto) 15.3H, Lymphocytes # (Auto) 3.7, Monocytes # (Auto) 1.9H, Eosinophils # (Auto) 0.0, Basophils # (Auto) 0.1, Immature Granulocyte # (Auto) 0.1, Percent Immature Platelet Fraction 2.9 11/05/22 01:57: Prothrombin Time 14.7, INR Comment 1.1, Activated Partial Thromboplast Time 29, Fibrinogen 288, D-Dimer 5.12H 6/28/23 07:22: White Blood Count 20.6H, Red Blood Count 3.51L, Hemoglobin 10.2#L, Hematocrit 31L, Mean Corpuscular Volume 87, Mean Corpuscular Hemoglobin 29, Mean C orpuscular Hemoglobin Concent 33, Red Cell Distribution Width 14.3, Platelet Count 185, Mean Platelet Volume 9.6, Immature Granulocyte % (Auto) 1, Neutrophils (%) (Auto) 83H, Lymphocytes (%) (Auto) 9L, Monocytes (%) (Auto) 8, Eosinophils (%) (Auto) 0, Basophils (%) (Auto) 0, Neutrophils # (Auto) 17.0H, Lymphocytes # (Auto) 1.9, Monocytes # (Auto) 1.5H, Eosinophils # (Auto) 0.0, Basophils # (Auto) 0.1, Immature Granulocyte # (Auto) 0.1 AHMET DELGADILLO DO Nov 05, 2022 11:32
[2022-11-05] MEDS: FERROUS SULF 325 MG (IRON) TAB PO SCH (13:16)
[2022-11-05] MEDS ORDERED: ONDANSETRON 4 MG (ZOFRAN) ORAL DISSOLVE TAB PO ONE (14:00)
[2022-11-05] MEDS: WITCH HAZEL(TUCKS) 40 EA JAR TOP PRN (22:12)
[2022-11-05] MEDS: BENZOCAINE/MENTHOL (DERMOPLAST) 56 ML CAN TP PRN (22:12)
[2022-11-06 04:35] VITALS: BP 115/62
[2022-11-06] MEDS: ACETAMINOPHEN 500 MG TAB (TYLENOL) PO SCH ×2 (04:37→11:43)
[2022-11-06] MEDS: IBUPROFEN 600 MG (MOTRIN) TAB PO SCH ×2 (04:37→11:42)
[2022-11-06 05:52] LABS: BASOPHILS # (AUTO) 0.1 10^3/uL (0.0-0.1); BASOPHILS % (AUTO) 1 % (0-10); EOSINOPHILS # (AUTO) 0.1 10^3/uL (0.0-0.3); EOSINOPHILS % (AUTO) 1 % (0-10); HEMATOCRIT 22 % (35-52); HEMOGLOBIN 7.2 g/dL (11.5-16.0); LYMPHOCYTES # (AUTO) 3.9 10^3/uL (1.0-4.0); LYMPHOCYTES % (AUTO) 30 % (12-44); MEAN CORPUSCULAR HEMOGLOBIN 29 pg (25-34); MEAN CORPUSCULAR HGB CONC 33 g/dL (32-36); MEAN CORPUSCULAR VOLUME 87 fL (80-99); MEAN PLATELET VOLUME 10.4 fL (9.0-12.2); MONOCYTES # (AUTO) 0.9 10^3/uL (0.0-1.0); MONOCYTES % (AUTO) 7 % (0-12); NEUTROPHILS # (AUTO) 7.7 10^3/uL (1.8-7.8); NEUTROPHILS % (AUTO) 61 % (42-75); PLATELET COUNT 176 10^3/uL (130-400); WHITE BLOOD COUNT 12.7 10^3/uL (4.3-11.0)
[2022-11-06] MEDS: FERROUS SULF 325 MG (IRON) TAB PO SCH (06:28)
[2022-11-06] MEDS: PRENATAL VITAMIN 1 EA TAB PO SCH (06:28)
[2022-11-06 08:40] VITALS: BP 112/78
[2022-11-06] MEDS: DOCUSATE SODIUM 100 MG (COLACE) CAP PO SCH (08:48)
--- NOTE | 2022-11-06 10:12 | Short Stay Summary ---
Discharge Summary Hospital Course Final Diagnosis: see Hospital Course Hospital Course Date of Admission: Nov 04, 2022 at 07:18 Admission Diagnosis : 22 yo @ 39.1 wga here for elective IOL Family Physician/Provider: Telma Em MD Date of Discharge: 11/06/22 Discharge Diagnosis: status post spontanous vaginal delivery. hemorrhage. Hospital Course: Recovering well, hemodynamically stable Routine care. Encourage breast feeding. Encourage ambulation. Ferrous sulfate supplementation BID Hb on admission 10.1 -->8.1 post hemorrhage s/p transfusion 2 units prbc, Hb following 10.2 which I did not feel was accurate considering EBL; repeat 11/06 7.2 is more in alignment with expected Hb - patient is asymptomatic and vitals stable. Labs and Pending Lab Test: Laboratory Tests 11/06/22 05:00: White Blood Count 12.7H, Red Blood Count 2.49L, Hemoglobin 7.2#L, Hematocrit 22L , Mean Corpuscular Volume 87, Mean Corpuscular Hemoglobin 29, Mean Corpuscular Hemoglobin Concent 33, Red Cell Distribution Width 14.4, Platelet Count 176, Mean Platelet Volume 10.4, Immature Granulocyte % (Auto) 1, Neutrophils (%) (Auto) 61, Lymphocytes (%) (Auto) 30, Monocytes (%) (Auto) 7, Eosinophils (%) (Auto) 1, Basophils (%) (Auto) 1, Neutrophils # (Auto) 7.7, Lymphocytes # (Auto) 3.9, Monocytes # (Auto) 0.9, Eosinophils # (Auto) 0.1, Basophils # (Auto) 0.1, Immature Granulocyte # (Auto) 0.1 Discharge Meds: Ferrous sulfate 325mg twice daily for 30 days Ibuprofen 600mg every 6h as needed for cramping vitamin Assessment/Pt Instructions Follow up with Dr. Em for visit. Discharge Instructions Discharge Diet: No Restrictions Discharge Physical Examination General Appearance: Alert, Oriented X3, Cooperative Psych/Mental Status: Mental Status NL, Mood NL Allergies: Coded Allergies: adhesive tape (Verified Allergy, Unknown, 11/05/22) povidone-iodine (Verified Allergy, Unknown, 11/05/22) Discharge Summary Date of Admission Nov 04, 2022 at 07:18 Date of Discharge AHMET DELGADILLO DO Nov 06, 2022 10:12
[2022-11-06] MEDS ORDERED: FERR325T24 PO (10:20)
[2022-11-06] MEDS ORDERED: IBUP-844 PO (10:20)
[2022-11-06] MEDS ORDERED: RHO(D) IMMUNE GLOBULIN 300 MCG/2 ML SYRINGE IM/IV ONE (12:30)
[2022-11-06] MEDS ORDERED: MEASLES,MUMPS,RUBELLA 1 EA INJ SQ ONE (12:30)
[2022-11-06 13:50] VITALS: BP 112/78
[2022-11-06] MEDS ORDERED: FERROUS SULF 325 MG (IRON) TAB PO SCH (21:00)
--- NOTE | 2022-11-10 11:14 | Physician Query Clarification ---
PQ-Intro New Diagnosis Admission/Discharge Admission Date: Nov 04, 2022 at 07:18 Discharge Date: Nov 06, 2022 at 13:50 Dr. Em, The medical record reflects the following clinical scenario: History/Risk Factors: Delivery, current smoker Clinical Findings: EBL 2370 cc's, Hgb/Hct 10.130 > 7.2/22 Treatment: 2 U PRBC's, 325 Ferrous Sulfate BID Question: What condition best reflects the above clinical scenario? Please document a response in the Progress Noter or Discharge Summary. 1. acute blood loss anemia secondary to hemorrhage 2. hemorrhage only 3. Other, with explanation of the clinical findings. 4. Clinically undetermined, no explanation for the clinical findings. PHYSICIAN RESPONSE What condition reflects above: 1 In responding to this query, please exercise your independent professional judgment. The purpose of this communication is to more accurately reflect the complexity of your patients condition. The fact that a question is asked does not imply that any particular answer is desired or expected. Thank you for your timely response to this clarification. Requestors name: Landon THIS PHYSICIAN QUERY FORM IS A PERMANENT PART OF THE MEDICAL RECORD LANDON CARPIO Nov 10, 2022 11:14 THOMAS EM MD Nov 13, 2022 19:12
== END 2022-11-06 13:50 | disposition home or self-care (01) | DRG 806 ==
LOC: LDRP 07:18
PROVIDERS: ADMIT Family Medicine; ATTEND Family Medicine
PROC: 10E0XZZ Delivery of Products of Conception, External Approach (ICD-10-PCS; principal; 2022-11-04)
PROC: 0KQM0ZZ Repair Perineum Muscle, Open Approach (ICD-10-PCS; 2022-11-04)
PROC: 3E033VJ Introduction of Other Hormone into Peripheral Vein, Percutaneous Approach (ICD-10-PCS; 2022-11-04)
DX: O99.334 Smoking (tobacco) complicating childbirth (principal); D62 Acute posthemorrhagic anemia; Z37.0 Single live birth; O72.1 Other immediate postpartum hemorrhage; O90.81 Anemia of the puerperium; F17.200 Nicotine dependence, unspecified, uncomplicated; Z3A.39 39 weeks gestation of pregnancy; Z23 Encounter for immunization
CPT/HCPCS: 36415; 83033; 85025; 85379; 85384; 85610; 85730; 86780; 86850; 86900; 86901; 86920; 90707

== ENCOUNTER 2022-11-09 00:39 | Emergency (ER) | payer MEDICAID ==
[~2022-11-09 00:39] MED LIST changes: +FERR325T24 PO; +IBUP-844 PO
[2022-11-09] MEDS ORDERED: morphine INJ 10 MG/ML 1ML (SYR OR VIAL) IVP STA (00:46)
--- NOTE | 2022-11-09 00:53 | ED General ---
General Chief Complaint: Back Problems Stated Complaint: LOWER BACK PAIN|ABD PAIN|SEVER PAIN Source of Information: Patient, Old Records Exam Limitations: No Limitations History of Present Illness Date Seen by Provider: Nov 09, 2022 Time Seen by Provider: 00:41 Initial Comments 22yoF that had a now with a 5 day old baby which was complicated by hemorrhage in which she received 2 units of blood coming in due to right flank pain. The pain started about an hour ago, sharp, constant, associated with nausea, no vomiting. Has never had pain like this before. Has not taken anything for it as of yet. In regards to the bleeding since the , and has been slowing down and improving. Baby has been doing well, they have been bottlefeeding formula. The patient denies any prior history of kidney stones, no dysuria, fever, diarrhea, or any other concerns. Had a normal bowel movement a couple hours ago. Allergies and Home Medications Allergies Coded Allergies: adhesive tape (Verified Allergy, Unknown, 11/05/22) povidone-iodine (Verified Allergy, Unknown, 11/05/22) Patient Home Medication List Home Medication List Reviewed: Yes Ferrous Sulfate (Ferosul) 325 Mg (65 Mg Iron) Tablet, 325 MG PO BID Prescribed by: AHMET DELGADILLO on 11/06/22 1020 Hydrocodone/Acetaminophen (Hydrocodone-Acetamin 5-325 mg) 5 Mg-325 Mg Tablet, 1 TAB PO Q6H PRN for PAIN-MODERATE (5-7) Prescribed by: MIRIAM LOCKETT on 11/09/22 0110 Ibuprofen (Ibu) 600 Mg Tablet, 600 MG PO Q6H PRN for CRAMPS Prescribed by: AHMET DELGADILLO on 11/06/22 1020 Ketorolac Tromethamine (Ketorolac Tromethamine) 10 Mg Tablet, 10 MG PO Q6H PRN for PAIN-MODERATE (5-7) Prescribed by: MIRIAM LOCKETT on 11/09/22 010 Ondansetron (Ondansetron Odt) 4 Mg Tab.rapdis, 4 MG SL Q6H PRN for NAUSEA/VOMITING Prescribed by: MIRIAM LOCKETT on 11/09/22 010 Potassium Chloride (Potassium Chloride) 20 Meq Tablet.er, 20 MEQ PO DAILY Prescribed by: MIRIAM LOCKETT on 11/09/22 0133 Tamsulosin HCl (Flomax) 0.4 Mg Cap, 0.4 MG PO DAILY Prescribed by: MIRIAM LOCKETT on 11/09/22 0109 Discontinued Medications Amoxicillin (Amoxicillin) 500 Mg Capsule, 500 MG PO TID Prescribed by: APOLINAR SOTO MD on 08/24/22 1140 Amoxicillin/Potassium Clav (Augmentin 500-125 Tablet) 500 Mg-125 Mg Tablet, 1 EACH PO BID Prescribed by: Sophie House on 05/02/22 1308 Amoxicillin/Potassium Clav (Amox Tr-K Clv 875-125 mg Tab) 875 Mg-125 Mg Tablet, 1 EACH PO BID Prescribed by: WILBER LAZO on 07/24/22 1426 Cephalexin (Cephalexin) 500 Mg Tablet, 500 MG PO QID Prescribed by: WILBER LAZO on 01/26/20 0047 Cephalexin (Cephalexin) 500 Mg Tablet, 500 MG PO TID Prescribed by: RAMÓN INGRAM on 05/30/22 1819 Doxylamine/Pyridoxine HCl (Diclegis Dr 10-10 mg Tablet) 10 Mg-10 Mg Tablet.dr, 1 EACH PO HS Prescribed by: APOLINAR SOTO MD on 08/24/22 1139 Loratadine (Claritin) 10 Mg Tab.rapdis, 10 MG PO BID Prescribed by: RAMÓN INGRAM on 07/05/22 1421 Nitrofurantoin Monohyd/M-Cryst (Macrobid 100 mg Capsule) 100 Mg Capsule, 1 TAB PO BID Prescribed by: WILBER LAZO on 08/12/22 1419 Ofloxacin (Ofloxacin) 0.3 % Drops, 10 DROPS OT DAILY Prescribed by: WILBER LAZO on 07/24/22 1426 Ondansetron (Ondansetron Odt) 4 Mg Tab.rapdis, 4 MG SL Q4H PRN for NAUSEA/VOMITING Prescribed by: RAMÓN INGRAM on 05/30/22 1820 Potassium Chloride (K-Tab ER) 20 Meq Tablet.er, 40 MEQ PO DAILY Prescribed by: APOLINAR SOTO MD on 08/24/22 1142 Promethazine HCl (Promethazine Suppository) 12.5 Mg Supp.rect, 12.5 MG RC TID Prescribed by: APOLIANR SOTO MD on 08/24/22 1139 Sulfamethoxazole/Trimethoprim (Bactrim Ds Tablet) 800 Mg-160 Mg Tablet, 1 EACH PO BID Prescribed by: RAMÓN INGRAM on 02/12/22 1332 Review of Systems Review of Systems Constitutional: No fever EENTM: no symptoms reported Respiratory: no symptoms reported Cardiovascular: no symptoms reported Gastrointestinal: no symptoms reported Genitourinary: no symptoms reported Musculoskeletal: back pain (right flank) Skin: no symptoms reported Psychiatric/Neurological: No Symptoms Reported Past Euhmoyp-Ufevoo-Nnklyi Hx Patient Social History Tobacco Use?: No Use of E-Cig and/or Vaping dev: No Substance use?: No Alcohol Use?: No Pt feels they are or have been: No Immunizations Up To Date Tetanus Booster (TDap): Less than 5yrs First/Initial COVID19 Vaccinat: DENIES Second COVID19 Vaccination Remington: DENIES Third COVID19 Vaccination Date: DENIES Past Medical History Surgery/Hospitalization HX: Childbirth in 2020 Surgeries: No Respiratory: No Cardiac: No Neurological: No Genitourinary: No Gastrointestinal: No Musculoskeletal: No Endocrine: No HEENT: No Cancer: No Psychosocial: No Integumentary: No Blood Disorders: No Physical Exam Vital Signs Vital Signs - First Documented 11/09/22 00:42 Temp 36.7 Pulse 61 Resp 18 B/P (MAP) 142/85 (104) Pulse Ox 99 O2 Delivery Room Air Capillary Refill : Height, Weight, BMI Height: '" Weight: lbs. oz. kg; 25.53 BMI Method: General Appearance: WD/WN, Mild Distress Eyes: Bilateral Eye Normal Inspection HEENT: PERRL/EOMI, Normal ENT Inspection, Pharynx Normal Neck: Full Range of Motion, Normal Inspection, Non Tender, Supple Respiratory: Chest Non Tender, Lungs Clear, Normal Breath Sounds, No Accessory Muscle Use, No Respiratory Distress Cardiovascular: Regular Rate, Rhythm, No Edema, Normal Peripheral Pulses Gastrointestinal: Normal Bowel Sounds, Non Tender, Soft; No Distended, No Guarding Back: Normal Inspection, No Vertebral Tenderness; No CVA Tenderness (L); CVA Tenderness (R) Extremity: Normal Capillary Refill, Normal Inspection, Normal Range of Motion, Non Tender, No Calf Tenderness, No Pedal Edema Neurologic/Psychiatric: Alert, No Motor/Sensory Deficits, Normal Mood/Affect Skin: Normal Color, Warm/Dry Progress/Results/Core Measures Suspected Sepsis SIRS Temperature: Pulse: Respiratory Rate: Laboratory Tests 11/09/22 00:50: White Blood Count 10.5 Blood Pressure / Mean: Laboratory Tests 11/09/22 00:50: Creatinine 0.72, Platelet Count 236, Total Bilirubin 0.5 Results/Orders Lab Results Laboratory Tests Test 11/09/22 00:50 11/09/22 02:50 Range/Units White Blood Count 10.5 4.3-11.0 10^3/uL Red Blood Count 2.84 L 3.80-5.11 10^6/uL Hemoglobin 8.3 L 11.5-16.0 g/dL Hematocrit 25 L 35-52 % Mean Corpuscular Volume 88 80-99 fL Mean Corpuscular Hemoglobin 29 25-34 pg Mean Corpuscular Hemoglobin Concent 33 32-36 g/dL Red Cell Distribution Width 14.3 10.0-14.5 % Platelet Count 236 130-400 10^3/uL Mean Platelet Volume 8.8 L 9.0-12.2 fL Immature Granulocyte % (Auto) 0 % Neutrophils (%) (Auto) 60 42-75 % Lymphocytes (%) (Auto) 30 12-44 % Monocytes (%) (Auto) 7 0-12 % Eosinophils (%) (Auto) 3 0-10 % Basophils (%) (Auto) 0 0-10 % Neutrophils # (Auto) 6.3 1.8-7.8 10^3/uL Lymphocytes # (Auto) 3.2 1.0-4.0 10^3/uL Monocytes # (Auto) 0.7 0.0-1.0 10^3/uL Eosinophils # (Auto) 0.3 0.0-0.3 10^3/uL Basophils # (Auto) 0.0 0.0-0.1 10^3/uL Immature Granulocyte # (Auto) 0.0 0.0-0.1 10^3/uL Sodium Level 141 135-145 MMOL/L Potassium Level 2.5 *L 3.6-5.0 MMOL/L Chloride Level 104 98-107 MMOL/L Carbon Dioxide Level 26 21-32 MMOL/L Anion Gap 11 5-14 MMOL/L Blood Urea Nitrogen 5 L 7-18 MG/DL Creatinine 0.72 0.60-1.30 MG/DL Estimat Glomerular Filtration Rate 121 BUN/Creatinine Ratio 7 Glucose Level 107 H 70-105 MG/DL Calcium Level 8.8 8.5-10.1 MG/DL Corrected Calcium 9.4 8.5-10.1 MG/DL Total Bilirubin 0.5 0.1-1.0 MG/DL Aspartate Amino Transf (AST/SGOT) 16 5-34 U/L Alanine Aminotransferase (ALT/SGPT) 11 0-55 U/L Alkaline Phosphatase 134 40-136 U/L Total Protein 5.6 L 6.4-8.2 GM/DL Albumin 3.2 3.2-4.5 GM/DL Lipase 20 8-78 U/L Urine Color YELLOW Urine Clarity CLOUDY Urine pH 7.0 5-9 Urine Specific [place] <=1.005 1.016-1.022 Urine Protein NEGATIVE NEGATIVE Urine Glucose (UA) NEGATIVE NEGATIVE Urine Ketones TRACE H NEGATIVE Urine Nitrite NEGATIVE NEGATIVE Urine Bilirubin NEGATIVE NEGATIVE Urine Urobilinogen 0.2 < = 1.0 MG/DL Urine Leukocyte Esterase 2+ H NEGATIVE Urine RBC (Auto) 3+ H NEGATIVE Urine RBC 5-10 H /HPF Urine WBC >100 H /HPF Urine Squamous Epithelial Cells 10-25 H /HPF Urine Crystals NONE /LPF Urine Bacteria FEW H /HPF Urine Casts NONE /LPF Urine Mucus NEGATIVE /LPF Urine Culture Indicated YES My Orders Orders - MIRIAM LOCKETT MD Ct Abdomen/Pelvis Wo (11/09/22 00:46) Cbc With Automated Diff (11/09/22 00:46) Comprehensive Metabolic Panel (11/09/22 00:46) Lipase (11/09/22 00:46) Ua Culture If Indicated (11/09/22 00:46) Ketorolac Injection (Toradol Injection) (11/09/22 01:00) Ondansetron Injection (Zofran Injectio (11/09/22 01:00) Morphine Injection (Morphine Injection (11/09/22 00:46) Oxycodone Immediate Rel Tablet (Oxyir Ta (11/09/22 01:15) Rx-Hydrocodone/Apap 5-325 Mg (Rx-Vicodin (11/09/22 01:15) Rx-Ondansetron Po (Rx-Zofran Po) (11/09/22 01:11) Potassium Cl 10meq/50ml Ivpb (Kcl 10 Meq (11/09/22 01:31) Ns Iv 500 Ml (Sodium Chloride 0.9%) (11/09/22 01:31) Magnesium 1 Gm/100 Ml Ivpb (Magnesium Christensen (11/09/22 01:45) Potassium Chloride (Tablet) (K Dur Table (11/09/22 01:45) Ed Iv/Invasive Line Start (11/09/22 02:48) Urine Culture (11/09/22 02:50) Ceftriaxone 1gm/50ml (1xdose) (11/09/22 03:15) Medications Given in ED Current Medications Medications Dose Ordered Sig/Lynette Route Start Time Stop Time Status Last Admin Dose Admin Ketorolac Tromethamine 15 mg ONCE ONCE IVP 11/09/22 01:00 11/09/22 01:01 DC 11/09/22 00:53 15 MG Magnesium Sulfate/ Dextrose 100 ml @ 100 mls/hr ONCE ONCE IV 11/09/22 01:45 11/09/22 02:44 DC 11/09/22 01:43 100 MLS/HR Ondansetron HCl 4 mg ONCE ONCE IVP 11/09/22 01:00 11/09/22 01:01 DC 11/09/22 00:53 4 MG Potassium Chloride 60 meq ONCE ONCE PO 11/09/22 01:45 11/09/22 01:46 DC 11/09/22 01:42 60 MEQ Vital Signs/I&O 11/09/22 00:42 Temp 36.7 Pulse 61 Resp 18 B/P (MAP) 142/85 (104) Pulse Ox 99 O2 Delivery Room Air Capillary Refill : Progress Note : Progress Note 22yoF with above history coming in due to right flank pain. ABCs were intact and vitals were stable on presentation. Physical exam with right flank pain, but she is in no acute distress. An IV was placed and basic labs were obtained. CT abdomen pelvis without contrast ordered and on my interpretation she does have a right-sided kidney stone and hydronephrosis. She was given morphine and Toradol for pain. She was given Zofran for nausea. Labs were significant for hemoglobin around 8 which is trending up from her prior, normal creatinine, low potassium at 2.5. She was given both oral and IV potassium replacement. Prescription will also be sent for this. She was also given IV magnesium. The official stat rad read showed a 6 mm kidney stone with moderate hy dronephrosis on the right. Urinalysis with greater than 100 white blood cells concerning for infection. Given an IV ceftriaxone injection here followed by prescriptions at home. I believe the patient is stable for discharge with outpatient follow-up. She was sent home with strict return precautions Diagnostic Imaging Diagonstic Imaging: CT (abd/pelvis) Departure Impression Primary Impression: Ureterolithiasis Additional Impressions: Hypokalemia Cystitis Disposition: HOME, SELF-CARE Condition: Stable Departure-Patient Inst. Decision time for Depature: 03:05 Referrals: THOMAS SYED MD (PCP/Family) Primary Care Physician Patient Instructions: Kidney Stone, Adult ED, Hypokalemia (DC) Add. Discharge Instructions: It does appear like you have a kidney stone on the right causing some blockage. We will send some pain medicine to your pharmacy as well as some nausea medicine. Try to take the ketorolac first, if you have pain on top of that then you can take the hydrocodone. If you run out of the ketorolac, you can take ibuprofen 600 mg every [address] of it. You will also be on an antibiotic for the infection in your urine. Please follow-up with your regular doctor. Please call your urologist of your choosing, the closest would be [facility] or [place] Aaron in [place]- [phone] It can take some time for a kidney stone to pass, also try to schedule an appointment as soon as possible. Scripts Cefdinir (Cefdinir) 300 Mg Capsule 300 MG PO BID for 10 Days, #20 CAP 0 Refills Prov: MIRIAM LOCKETT MD 11/09/22 Potassium Chloride (Potassium Chloride) 20 Meq Tablet.er 20 MEQ PO DAILY for 7 Days, #7 TAB Prov: MIRIAM LOCKETT MD 11/09/22 Tamsulosin HCl (Flomax) 0.4 Mg Cap 0.4 MG PO DAILY for 14 Days, #14 CAP Prov: MIRIAM LOCKETT MD 11/09/22 Ondansetron (Ondansetron Odt) 4 Mg Tab.rapdis 4 MG SL Q6H PRN for NAUSEA/VOMITING for 5 Days, #20 TAB Prov: MIRIAM LOCKETT MD 11/09/22 Ketorolac Tromethamine (Ketorolac Tromethamine) 10 Mg Tablet 10 MG PO Q6H PRN for PAIN-MODERATE (5-7) for 3 Days, #12 TAB Prov: MIRIAM LOCKETT MD 11/09/22 Hydrocodone/Acetaminophen (Hydrocodone-Acetamin 5-325 mg) 5 Mg-325 Mg Tablet 1 TAB PO Q6H PRN for PAIN-MODERATE (5-7) for 3 Days, #12 TAB Prov: MIRIAM LOCKETT MD 11/09/22 MIRIAM LOCKETT MD Nov 09, 2022 00:53
[2022-11-09 00:57] LABS: BASOPHILS % (AUTO) 0 % (0-10); EOSINOPHILS # (AUTO) 0.3 10^3/uL (0.0-0.3); EOSINOPHILS % (AUTO) 3 % (0-10); HEMATOCRIT 25 % (35-52); HEMOGLOBIN 8.3 g/dL (11.5-16.0); LYMPHOCYTES # (AUTO) 3.2 10^3/uL (1.0-4.0); LYMPHOCYTES % (AUTO) 30 % (12-44); MEAN CORPUSCULAR HEMOGLOBIN 29 pg (25-34); MEAN CORPUSCULAR HGB CONC 33 g/dL (32-36); MEAN CORPUSCULAR VOLUME 88 fL (80-99); MEAN PLATELET VOLUME 8.8 fL (9.0-12.2); MONOCYTES # (AUTO) 0.7 10^3/uL (0.0-1.0); MONOCYTES % (AUTO) 7 % (0-12); NEUTROPHILS # (AUTO) 6.3 10^3/uL (1.8-7.8); NEUTROPHILS % (AUTO) 60 % (42-75); PLATELET COUNT 236 10^3/uL (130-400); WHITE BLOOD COUNT 10.5 10^3/uL (4.3-11.0)
[2022-11-09] MEDS ORDERED: ONDANSETRON 4 MG/2 ML (SDV) Z0FRAN IVP ONE (01:00)
[2022-11-09] MEDS ORDERED: KETOROLAC 15 MG/ML VIAL IVP ONE (01:00)
[2022-11-09] MEDS ORDERED: KETO10TA PO (01:09)
[2022-11-09] MEDS ORDERED: ONDA4TAB11 SL (01:09)
[2022-11-09] MEDS ORDERED: TMSL.4C PO (01:09)
[2022-11-09] MEDS ORDERED: ACHD5005 PO (01:09)
[2022-11-09] MEDS ORDERED: RX-ONDANSETRON 4 MG ODT (ZOFRAN) PPK #4 PO STA (01:11)
[2022-11-09 01:28] LABS: ALBUMIN 3.2 GM/DL (3.2-4.5); BILIRUBIN,TOTAL 0.5 MG/DL (0.1-1.0); CALCIUM 8.8 MG/DL (8.5-10.1); CREATININE SERUM 0.72 MG/DL (0.60-1.30); TOTAL PROTEIN 5.6 GM/DL (6.4-8.2)
[2022-11-09 01:29] LABS: POTASSIUM 2.5 MMOL/L (3.6-5.0)
[2022-11-09] MEDS ORDERED: POTASSIUM CL 10MEQ/50ML IVPB 50 ML IV STA (01:31)
[2022-11-09] MEDS ORDERED: NS IV 500 ML 500 ML IV STA (01:31)
[2022-11-09] MEDS ORDERED: POTA-330 PO (01:33)
[2022-11-09] MEDS ORDERED: KCL 20 MEQ TAB (K-DUR) PO ONE (01:45)
[2022-11-09] MEDS ORDERED: MAGNESIUM 1 GM/100 ML IVPB 100 ML IV ONE (01:45)
[2022-11-09 03:02] LABS: BILIRUBIN,URINE NEGATIVE (NEGATIVE); COLOR,URINE YELLOW; GLUCOSE, URINE (UA) NEGATIVE (NEGATIVE); KETONES,URINE TRACE (NEGATIVE); LEUKOCYTE ESTERASE ,URINE 2+ (NEGATIVE); NITRITE,URINE NEGATIVE (NEGATIVE); PROTEIN,URINE NEGATIVE (NEGATIVE)
[2022-11-09 03:06] LABS: CLARITY,URINE CLOUDY; WBC,URINE >100 /HPF
[2022-11-09 03:07] LABS: BACTERIA,URINE FEW /HPF
[2022-11-09] MEDS ORDERED: CEFD300C3 PO (03:10)
[2022-11-09] MEDS ORDERED: cefTRIAXone IV/IM 1,000 MG in NS (IVPB) 50 ML IV ONE (03:15)
[2022-11-09 03:22] VITALS: BP 142/85
--- NOTE | 2022-11-09 08:10 | Diagnostic Imaging Report ---
PROCEDURE: CT abdomen and pelvis without contrast. TECHNIQUE: Multiple contiguous axial images were obtained through the abdomen and pelvis without the use of intravenous contrast. Auto Exposure Controls were utilized during the CT exam to meet ALARA standards for radiation dose reduction. INDICATION: Right flank pain, COMPARISON: None available FINDINGS: Visualized lung bases are clear. The unenhanced liver is mildly enlarged measuring just over 19 cm in craniocaudal dimension. The spleen is borderline enlarged measuring near 14 cm in AP dimension. The gallbladder is unremarkable. The adrenal glands are unremarkable. The unenhanced pancreas is unremarkable. A 0.7 cm calcification is noted within the right pelvis, likely related to a distal right ureterolith. This is associated with severe right-sided hydroureteronephrosis. Multiple additional bilateral renal calculi are present. No evidence of left-sided hydroureteronephrosis. No aneurysmal dilatation of the abdominal aorta. The uterus is enlarged. Central hyperdensity is identified within the uterus. The urinary bladder is decompressed, therefore not well evaluated. No evidence of bowel obstruction or free air. Wide neck nonobstructing bowel containing umbilical hernia. No significant adenopathy or free air. No acute osseous abnormality. IMPRESSION: 0.7 cm stone within the distal right ureter resulting in severe right hydroureteronephrosis. Multiple bilateral renal calculi, nonobstructing on the left. Enlarged uterus with central uterine hyperdensity, felt to relate to patient's recent recent status. Borderline hepatosplenomegaly. Additional findings as above. Agree with preliminary rotation. Dictated by: Dictated on workstation # [id number]
== END 2022-11-09 03:28 | disposition home or self-care (01) ==
LOC: EDUNIT# 00:39 → ER FS 00:40
DX: O86.22 Infection of bladder following delivery (principal); O90.89 Other complications of the puerperium, not elsewhere classified; N13.2 Hydronephrosis with renal and ureteral calculous obstruction; E87.6 Hypokalemia; Z28.310 Unvaccinated for COVID-19
CPT/HCPCS: 36415; 74176; 80053; 81000; 83690; 85025; 87088